=== PATIENT | female | born 1940 | race Caucasian/White ===

== ENCOUNTER 2016-12-06 13:00 | Inpatient (IN) | payer MEDICARE, OTHER ==
[~2016-12-06] VITALS: Ht 157.5 cm; Wt 45.1 kg
--- NOTE | ~2016-12-06 | CON ---
PATIENT'S NAME: EMI LORENZO [facility] AGE: 76 Y [address] ROOM: [facility] [place], [place] [address] [facility] ADMIT DATE: 12/06/2016 Consultation DISCHARGE DATE: FAMILY PHYSICIAN: Ailyn Ramirez APRN ATTENDING PHYSICIAN: Rosendo FROST DATE OF CONSULTATION: 12/14/2016 REFERRING PHYSICIAN: Rick Pollock MD SUBJECTIVE: Emi is seen today. She feels reasonably well with improvement in her shortness of breath. Chest x-ray done yesterday overall looked better. ASSESSMENT: Pneumonia, possible lung mass. PLAN: The patient will be discharged today. We will have Dr. Pollock set up a CT scan in [place] to follow up on her lung mass. She will follow up with me after that. MD GILMA DOMINGUEZ/rafael /[id number] d: 12/14/16 1354 t: 12/28/16 0826, CONSULTATION REPORT
--- NOTE | ~2016-12-06 | OR ---
PATIENT'S NAME: HALIMA LORENZO [facility] AGE: 76 Y [address] ROOM: [place] [address] LOCATION: GPCU ADMIT DATE: 12/06/2016 OR/Procedure Report DISCHARGE DATE: 12/15/2016 FAMILY PHYSICIAN: Ailyn Ramirez APRN ATTENDING PHYSICIAN: Rosendo FROST SURGEON: Giovanni Rodríguez DO REGULATORY ASSISTANT: DATE OF PROCEDURE: 12/14/2016 PREOPERATIVE DIAGNOSIS: Eroding sternal wire, with sternal wire pain. POSTOPERATIVE DIAGNOSIS: Eroding sternal wire, with sternal wire pain. PROCEDURE PERFORMED: Removal of sternal wires x4. BRIEF HISTORY: Mrs. Lorenzo has a history of aortic valve replacement with coronary artery bypass graft approximately 10 years ago by myself. Recently, she was admitted to the hospital with acute respiratory failure secondary to pneumonia. She was on the ventilator. During her time there, she was identified to have erosion of a sternal wire along her incision. She was markedly thinned out over the incision, and her stated this has been like this for several months. The remainder of her wires were also quite prominent and close to the skin. She has been brought to the operative suite today for removal of these. DESCRIPTION OF PROCEDURE: She was placed under MAC anesthetic and sterilely prepped and draped. Lidocaine 1% was used to infiltrate the incision. Four individual incisions were carried out over each sternal wire including the eroded area. The wires were divided and pulled without difficulty. The eroded area was further resected, and each incision was then closed with interrupted 0 Prolene. Further 1% lidocaine was used to infiltrate the area, and sterile dressings applied. She was returned to the recovery area in stable condition. DO TITO ESPINOZA/rafael /[id number] d: 12/17/16 1848 t: 12/20/16 0729, OPERATIVE SUMMARY
--- NOTE | ~2016-12-06 | CON ---
PATIENT'S NAME: EMI LORENZO [facility] AGE: 76 Y [address] ROOM: [place] [address] LOCATION: GICU ADMIT DATE: 12/06/2016 Consultation DISCHARGE DATE: FAMILY PHYSICIAN: Ailyn Ramirez APRN ATTENDING PHYSICIAN: Rosendo DALTON DATE OF CONSULTATION: 12/08/2016 REFERRING PHYSICIAN: Rick Pollock MD REASON FOR CONSULTATION: Pneumonia. SUBJECTIVE: Emi is a 76-year-old female whom I am asked to see today in consultation by Dr. Dalton for further evaluation, treatment, and recommendations regarding pneumonia. She also has a wound related to her prior sternotomy. She underwent mitral valve replacement several months ago-the date of her surgery is listed as September 2009. She has had a sternal wire working its way out recently with an open wound there. She was admitted on 12/06/2016 with cough productive of vnmpig-rg-pelbe sputum, dyspnea, and fever. Her chest x-ray showed bilateral infiltrates and she was suggested as having likely pneumonia. She did require intubation. She has had several prior admissions for pneumonia in the last year, as well. The BAL was carried out, with Staphylococcus aureus growing in culture so far. PAST MEDICAL HISTORY: As above, also COPD, atrial fibrillation, hypertension, and dyslipidemia. ALLERGIES: NONE NOTED. CURRENT MEDICATIONS: See the MAR for complete listing. Her current antibiotics are: 1. Vancomycin. 2. Zosyn. 3. Levofloxacin. FAMILY HISTORY: Significant for cancer and coronary artery disease. SOCIAL HISTORY: No tobacco or alcohol abuse history to my knowledge. She is retired. REVIEW OF SYSTEMS: PATIENT'S NAME: EMI LORENZO [facility] AGE: 76 Y [address] ROOM: [place] [address] LOCATION: [facility] ADMIT DATE: 12/06/2016 Consultation DISCHARGE DATE: FAMILY PHYSICIAN: Ailyn Ramirez APRN ATTENDING PHYSICIAN: Rosendo DALTON A complete review of systems was carried out, was remarkable only as noted. Please refer to the admission history and physical for complete details. OBJECTIVE: VITAL SIGNS: Temperature was 36.6, blood pressure 115/53, and pulse 75. GENERAL: She was on a ventilator, but was awake and responsive. She appeared to be nontoxic. HEENT: Posterior pharynx clear, no adenopathy or thyromegaly. Cranial nerves are intact. NECK: Supple. CHEST: Few rhonchi throughout both lungs. CARDIOVASCULAR: Regular rate and rhythm without S3, S4, or murmur. In the upper sternal incisional area, there was an obvious protruding sternal wire. There is no significant erythema or purulent drainage. ABDOMEN: Soft, nontender, without hepatosplenomegaly or masses. EXTREMITIES: Unremarkable. NEUROLOGIC: Strength globally diminished, no focal findings. PSYCHIATRIC: Behavior and affect appropriate. LABORATORY DATA: Creatinine 0.7, liver function tests normal, white count 22.3 thousand-was 8.4 on admission. Procalcitonin 71.96 on admission. Microbiology-BAL culture 12/06/2016 shows Staphylococcus aureus (methicillin-susceptible). DICTATION ENDS HERE. GAGE LUTZ MD JSS/modl /[id number] CC: Krystle Robbins MD d: 12/08/16 2347 t: 12/23/16 0811, CONSULTATION REPORT
--- NOTE | ~2016-12-06 | CON ---
PATIENT'S NAME: HALIMA LORENZO [facility] AGE: 76 Y [address] ROOM: [id number] [place] [address] LOCATION: [facility] ADMIT DATE: 12/06/2016 Consultation DISCHARGE DATE: FAMILY PHYSICIAN: Ailyn Ramirez APRN ATTENDING PHYSICIAN: Rosendo FROST REFERRING PHYSICIAN: Rick Pollock MD ADDENDUM: RADIOLOGY: Chest x-ray shows bilateral diffuse infiltrates consistent with pneumonia. CT of the thorax on 12/06/2016, shows large areas of dense lung consolidation in the right upper lobe, right lower lobe, and left lower lobe. IMPRESSION: Multifocal pneumonia, presumably Staphylococcus aureus. There is a possibility of aspiration as well given the distribution. She is quite frail and has a poor nutritional status. Additionally, she has a sternal wire protruding, though there is no sign of deep sternal infection at this time. Other diagnoses are as noted above. PLAN: For the time being, we will continue on Zosyn to cover both Staphylococcus aureus and potentially other organisms which have not cultured out yet. I would anticipate a 10-to 14-day course of antibiotics, depending upon her clinical progress. I would note that she has multiple medical conditions and many problems, so her prognosis is uncertain at this time. Continue antibiotics as noted above. I or one of my colleagues will be available to see her in 1 week for re-evaluation. I am available to answer questions by phone at [phone]. MD TAINA URIBE/modl /[id number] d: 12/08/16 233 t: 12/09/16 0751, CONSULTATION REPORT
--- NOTE | ~2016-12-06 | CON ---
PATIENT'S NAME: HALIMA LORENZO [facility] AGE: 76 Y [address] ROOM: [place] [address] LOCATION: GICU ADMIT DATE: 12/06/2016 Consultation DISCHARGE DATE: FAMILY PHYSICIAN: Ailyn Ramirez APRN ATTENDING PHYSICIAN: Rosendo FROST DATE OF CONSULTATION: 12/07/2016 REFERRING PHYSICIAN: Navdeep Christy MD REASON FOR VISIT: Sternal wound. HISTORY OF PRESENT ILLNESS: This is a 76-year-old female patient was admitted to [facility] with pneumonia and severe sepsis. She has a history of type 2 diabetes mellitus, COPD, CAD, atrial fibrillation, and hypertension. She had a coronary artery bypass grafting by Dr. Rodríguez 7 years ago. She is currently intubated and unable to provide a history. No family at bedside. She was able to nod her head and reported she has had this wound for a long time. I do not know if she has had any treatment to this site. She is nodding her head "yes" to the sternal wound pain. No other skin issues noted. PAST MEDICAL HISTORY: CAD, mitral valve regurgitation, status post CABG, atrial fibrillation, COPD, hypertension, hyperlipidemia, and type 2 diabetes mellitus. PAST SURGICAL HISTORY: Coronary artery bypass grafting with mitral valve replacement and abdominal surgery secondary to ulcer. FAMILY HISTORY: Positive for coronary artery disease. SOCIAL HISTORY: Per previous records, the patient lives in [place]. Per previous records, she is a never smoker and does not use alcohol. ALLERGIES: NO KNOWN DRUG ALLERGIES. CURRENT MEDICATIONS: Please refer to the medication administration record. PATIENT'S NAME: HALIMA LORENZO [facility] AGE: 76 Y [address] ROOM: [place] [address] LOCATION: GICU ADMIT DATE: 12/06/2016 Consultation DISCHARGE DATE: FAMILY PHYSICIAN: Ailyn Ramirez APRN ATTENDING PHYSICIAN: Rosendo FROST REVIEW OF SYSTEMS: Unable to fully complete due to patient being intubated. Please see HPI for further details. PHYSICAL EXAMINATION: VITAL SIGNS: Temperature 98.5, pulse 80, respirations 20, & blood pressure 98/48. Height 5 feet 2 inches and weight 55.1 kg. GENERAL: The patient appears pale. Intubated. Does open eyes. Does shake head yes or no. HEENT: Head normocephalic and atraumatic. Anicteric sclerae. Unable to fully visualize oral mucosa. NECK: Supple. CHEST: Please see skin assessment below. EXTREMITIES: Deferred. ABDOMEN: Flat. SKIN: Upper sternal wound measures 0.8 cm width x 0.5 cm length x 0.5 cm depth. Area probes to bone. Sternal wire present. Wound from what I can tell, appears pink. Periwound is very erythemic and slightly elevated. No odor. Moderate bloody exudate noted with probing. LABORATORY: Procalcitonin 1 to 1.08. CPK 309, CK-MB 2.4, and troponin I is 0.278. Magnesium 1.6. PT 24.6, INR at 2.32. Hemoglobin 9.3, hematocrit 29.1, lactate 2.7. Sodium 147, potassium 4.2, chloride 119, bicarb 13, BUN 26, creatinine 1.0, and glucose 97. ASSESSMENT/PLAN: Again, this is a 76-year-old female patient who was admitted to [facility] with pneumonia and severe sepsis. Wound Care consult to evaluate and assess sternal wound. 1. Sternal wound, status post CABG with mitral valve replacement about 7 years ago. Unsure of the onset. The patient appears very thin and probably lost significant weight, and due to the severe nature of her sepsis, this wound seems to have a multifactor etiology. Wound does probe to bone. I recommend consulting Dr. Rodríguez for further management and possible surgical intervention. For now, I instructed nursing to cover site with an Allevyn foam dressing changing Tuesdays and Fridays and p.r.n. saturation. 2. Severe sepsis. The patient on antibiotic therapy. Hospice managing. 3. Acute respiratory failure with hypoxia. The patient currently intubated. I would like to thank Dr. Christy for this consult. PATIENT'S NAME: HALIMA LORENZO [facility] AGE: 76 Y [address] ROOM: [place] [address] LOCATION: [facility] ADMIT DATE: 12/06/2016 Consultation DISCHARGE DATE: FAMILY PHYSICIAN: Ailyn Ramirez APRN ATTENDING PHYSICIAN: Rosendo FROST HANG HERRERA APRN FOR MD TREE DAVIS/modl /[id number] d: 12/08/16 1326 t: 12/23/16 1054, CONSULTATION REPORT
--- NOTE | ~2016-12-06 | DS ---
PATIENT'S NAME: HALIMA LORENZO [facility] AGE: 76 Y [address] ROOM: [facility] [place], [place] [address] LOCATION: GPCU ADMIT DATE: 12/06/2016 Discharge Summary DISCHARGE DATE: 12/15/2016 FAMILY PHYSICIAN: Ailyn Ramirez APRN ATTENDING PHYSICIAN: Krystle Robbins PRIMARY DIAGNOSES: 1. Septic shock. 2. Other acute diagnoses include:. a. Bilateral methicillin-sensitive staph aureus pneumonia. b. Acute hypoxic respiratory failure. c. Acute encephalopathy. d. Elevated troponin. e. Paroxysmal atrial fibrillation. f. Sternal wire exposure. g. Physical deconditioning. h. Severe protein-calorie malnutrition. i. Acute hypernatremia. j. Electrolyte imbalance. 3. Chronic conditions include:. a. Paroxysmal atrial fibrillation. b. Essential hypertension. PRINCIPAL PROCEDURES: Done for the patient include no procedure was indicated. LABS ON ADMISSION: ABG on admission; pH was 7.47, pCO2 was 29, pO2 was 62, and on vent last ABG, which was obtained was pH of 7.48, pO2 of 68, pCO2 of 31, bicarb 23.1, FiO2 of 30%. WBC on admission was 8.4, highest level obtained was 34.5, prior to discharge was 22.8; H and H on admission were 10.0 and 31.9, prior to discharge was 9.8 and 31.5, H and H were stable throughout the hospital stay; platelet count was 268 on admission, prior to discharge was 531. Sodium on admission was 143, highest level obtained was 147; potassium on admission was 3.4, was repleted multiple times, prior to discharge was 5.4; bicarb was stable throughout the hospital stay, on admission was 23, lowest level obtained was 13, prior to discharge was 28. Creatinine was 1.0 on admission, prior to discharge was 0.9. Phosphorus on admission was 2.6, lowest level obtained was 0.5, prior to discharge was 2.8. Magnesium on admission was 1.1, was repleted multiple times, prior to discharge was 1.8. INR on admission was 2.2, prior to discharge was 1.14. UA on admission: Leukocytes 25, nitrite negative, wbc's 2-5, bacteria rare. Procalcitonin on admission was 71.96, highest level obtained was 121.08. MICROBIOLOGY DATA: Blood culture x2 sets, no growth. Urine culture was no growth after 2 days. Bronchoalveolar lavage was methicillin-sensitive staph PATIENT'S NAME: HALIMA OLRENZO [facility] AGE: 76 Y [address] ROOM: [place] [address] LOCATION: GPCU ADMIT DATE: 12/06/2016 Discharge Summary DISCHARGE DATE: 12/15/2016 FAMILY PHYSICIAN: Ailyn Ramirez APRN ATTENDING PHYSICIAN: Krystle Robbins. Stool analysis, no Salmonella. Negative for ova and parasite. Stool for C. difficile was negative. Stool for occult blood was negative. RADIOLOGY DATA: Chest x-ray reported as left pleural effusion and left basilar consolidation or atelectasis, cannot exclude a right lung mass. Repeat chest x-ray after that intubation unchanged, mass like opacity in the right mid lung, more apparent on this film with blunting of the costophrenic angle on the right, suggestive of effusion. CT of the head, no acute hemorrhage or midline shift. Generalized atrophic changes and white matter small vessel ischemic changes. CT chest reported as endotracheal tube and orogastric tube in place, past cardiac surgery, large areas of dense lung consolidation in the right upper lobe, right lower lobe, and left lower lobe. Serial chest x-ray done. HOSPITAL COURSE: For history of present illness, please take a look at the H and P, which was done by Dr. Dalton. The patient was admitted to ICU with acute hypoxic respiratory failure and was subsequently intubated in PCU and was transferred to the ICU. Cause of the acute hypoxic respiratory failure was thought to be secondary to severe bilateral lobe pneumonia. She was started empirically on broad-spectrum antibiotics of vancomycin, Levaquin, and Zosyn. The patient subsequently also did develop transient shock, which was thought to be secondary to septic shock; however, she was quickly weaned off the pressors within 24 hours. She did also get a Cardiology consult for the elevated troponins; however, this was thought to be secondary to demand ischemia. The patient remained intubated for at least 3 days, after which she was successfully extubated on December 10, 2016, to 6 L of nasal cannula. She did also get an ID consult, and the sputum culture was positive for methicillin- sensitive Staph, and so ID deescalated the antibiotics to Zosyn, which she continued on up until discharge. However, during the hospital stay, her white cell count continued to trend up, and at this point vancomycin was added for approximately 2 days, after which it was discontinued as this did not have any change in the elevation of the white blood cell count. By December 11, 2016, the patient was transferred out of the ICU to PCU where she continued to make improvement in her clinical condition. She started with physical therapy, which she participated well with, and slowly, her oxygen demand progressively reduced, and she was successfully weaned off oxygen to room air on the day of discharge. During her hospital stay, she did also develop some electrolyte imbalance of hypophosphatemia, hypomagnesemia, and hypokalemia. All of which were repleted multiple times. During her ICU stay, it was observed that her sternotomy wire was exposed, and this was deferred till December 14, 2016, during which time it was done removed by Dr. Rodríguez. The procedure was well tolerated by the patient without any intraoperative or postoperative complications. Given her severe physical deconditioning, plan was for the PATIENT'S NAME: HALIMA LORENZO [facility] AGE: 76 Y [address] ROOM: [address] [address] LOCATION: GPCU ADMIT DATE: 12/06/2016 Discharge Summary DISCHARGE DATE: 12/15/2016 FAMILY PHYSICIAN: Ailyn Ramirez APRN ATTENDING PHYSICIAN: Krystle Robbins patient to be discharged to swing bed at [facility] for more strengthening. However, on the day of discharge, she was able to walk with physical therapy without support, without oxygen, and vital signs remained stable, and she was discharged to the swing bed. On the day of discharge, I did also talk with Dr. Arriaga, the ID doctor, regarding further management of duration of antibiotics, and he recommended for the patient to be on Augmentin for an additional 10 more days. DISCHARGE INSTRUCTIONS: Include the patient is to continue on Lovenox to bridge with Coumadin, and Lovenox is to be stopped once INR is greater than or equal to 1.9. MEDICATIONS ON DISCHARGE: 1. Multaq 400 mg p.o. twice daily. 2. Coumadin 4.5 mg p.o. twice daily 2 days a week. 3. Aspirin 81 mg p.o. daily. 4. Lovenox 60 mg subcu daily. 5. Protonix 40 mg p.o. daily. 6. Crestor 10 mg p.o. q.h.s. 7. Coumadin 3 mg p.o. 5 days a week. 8. Tylenol 325 to 650 mg p.o. q.6 hours p.r.n. 9. Florastor 250 mg p.o. twice daily. 10. Dulcolax 10 mg rectally every day p.r.n. 11. Milk of magnesia 30 mL p.o. daily p.r.n. 12. Reglan 10 mg p.o. daily. 13. DuoNeb 1 vial 3 times daily p.r.n. 14. Symbicort 160/4.5 mcg inhaler 1 puff daily p.r.n. 15. Augmentin 875/125 mg b.i.d. p.o. for an additional 10 more days. 16. Prednisone taper, prednisone 40 mg p.o. daily for 3 days, then prednisone 30 mg p.o. for 3 days, then 20 mg p.o. daily for 3 days, then 10 mg p.o. daily for 3 days, and prednisone 5 mg p.o. daily for 3 days, then stop. Discharge time spent on this patient is approximately 40 minutes, which included coordinating discharge care with care management and also discussing with the accepting medical team at the swing bed. MD PINKY MELO/rafael /[id number] d: 12/16/16 0121 t: 12/19/16 1619, DISCHARGE SUMMARY
--- NOTE | ~2016-12-06 | CON ---
PATIENT'S NAME: HALIMA LORENZO [facility] AGE: 76 Y [address] ROOM: [place] [address] LOCATION: [facility] ADMIT DATE: 12/06/2016 Consultation DISCHARGE DATE: FAMILY PHYSICIAN: Ailyn Ramirez APRN ATTENDING PHYSICIAN: Rosendo FROST REFERRING PHYSICIAN: Rick Pollock MD REFERRING PHYSICIAN: Dr. Hampton. REASON FOR CONSULT: Elevated cardiac enzymes. HISTORY OF PRESENT ILLNESS: This is a 76-year-old female with a history of mitral valve regurgitation, post bioprosthetic mitral valve as well as coronary artery disease post single- vessel bypass. She also has history of paroxysmal atrial fibrillation and hypertension as well as diabetes mellitus and COPD. She presented to the [facility] complaining of being very weak and coughing. She was so weak she could not even get out of bed at that morning. She has been complaining of a low-grade fever as well as a cough and shortness of breath. Her appetite has been very poor and she is "completely worn out." Family was quite confused because she has been a little more confused lately. She has not really complained of chest pain. She was a little orthopneic. She denies palpitations, lightheadedness, or dizziness. No presyncope or syncope. At the time of consultation, she is extremely short of breath with increased work of breathing, sitting upright with her mouth open gasping for air. HISTORY OF PRESENT ILLNESS: Most of the information was gathered from her family. As of note, patient had not followed up with Dr. Pollock since 2013. PAST MEDICAL HISTORY: 1. Mitral valve regurgitation, post mitral valve replacement, #29 bioprosthetic valve 09/2009. 2. Coronary artery disease post open heart surgery with reverse saphenous vein graft to the PDA 09/2009. 3. Essential hypertension. 4. Dyslipidemia. 5. Long-term anticoagulation - warfarin. 6. Paroxysmal atrial fibrillation. 7. Diabetes mellitus type 2. 8. High-risk medications - Multaq. 9. COPD. 10. History of pneumonia. PATIENT'S NAME: HALIMA LORENZO [facility] AGE: 76 Y [address] ROOM: [place] [address] LOCATION: [facility] ADMIT DATE: 12/06/2016 Consultation DISCHARGE DATE: FAMILY PHYSICIAN: Ailyn Ramirez APRN ATTENDING PHYSICIAN: Rosendo FROST 11. Aortic regurgitation. 12. Macular degeneration. 13. Gastroesophageal reflux. PAST SURGICAL HISTORY: 1. T and A. 2. Appendectomy. 3. 10/02/1997, right femoral neck fracture, post pinning. 4. Abdominal hysterectomy in her 30s. 5. 04/05/2000, left femoral neck fracture, post closed reduction with percutaneous screw placement 04/05/2000. 6. Left heart catheterization, 09/15/2009 of the left and right heart catheterization, 09/15/2009 at [facility]. 7. 10/07/2009 mitral valve replacement #29 bioprosthetic valve with one- vessel CABG RSV to the PDA. 8. Thyroidectomy and parathyroidectomy. 9. Bowel resection. ALLERGIES: NONE TO MEDICATION. HOME MEDICATIONS: 1. Acetaminophen 325 mg every 6 hours. 2. She is on amoxicillin 500 mg 2 g p.o. one time prior to dental procedure. 3. Symbicort 160/4.5, one puff every day. 4. Multaq 400 mg b.i.d. 5. Ipratropium/albuterol sulfate 0.5/3 inhalation t.i.d. 6. Metoclopramide 5 mg, she takes two tablets daily. 7. Pantoprazole 40 mg p.o. every day. 8. Rosuvastatin or Crestor 10 mg every h.s. 9. Micardis or telmisartan 20 mg daily. 10. Warfarin 4.5 mg 2 days a week and 3 mg 5 days a week. FAMILY HISTORY: Father had a myocardial infarction at the age 52 and . Mother had bone cancer as well as colon cancer. It is seemed that she had a sister with some sort of heart problem as well diabetes mellitus, REVIEW OF SYSTEMS: Are per HPI. She is very short of breath and difficult to discuss at this time. PHYSICAL EXAMINATION: VITAL SIGNS: She is awake, alert, answers questions appropriately. She is in acute respiratory distress. PATIENT'S NAME: HALIMA LORENZO [facility] AGE: 76 Y [address] ROOM: [place] [address] LOCATION: GICU ADMIT DATE: 12/06/2016 Consultation DISCHARGE DATE: FAMILY PHYSICIAN: Ailyn Ramirez APRN ATTENDING PHYSICIAN: Rosendo FROST HEENT: Pupils were equal. LUNGS: Sounds were coarse with rales or rhonchi throughout. CV: Regular and sinus rhythm with frequent PVCs. ABDOMEN: Soft. Bowel sounds are present. EXTREMITIES: Show no peripheral edema. VITAL SIGNS: Her height is 5 feet 2 inches, weight is 52.5 kg, initial blood pressure 146/67 with a heart rate of 107 to 140, temp max is 100.1. LABS: From [facility], WBC is 31, hemoglobin 11, platelets are 271. UA shows moderate blood. Sodium 138, potassium 3.4, BUN 25, creatinine 0.95. Lactic acid 2.4, troponin 0.13, INR 2.08, second troponin was 0.16. ASSESSMENT: 1. Elevated cardiac enzymes, currently were not concerned with those enzymes, but at this time, we will treat her acute respiratory distress and pneumonia. 2. Premature ventricular contractions. We are going to replace her potassium as it is a little bit low at this time. 3. Pneumonia. She will follow up with the hospitalist. 4. Diabetes mellitus. She will continue diet control. We will continue to monitor her closely. 5. Paroxysmal atrial fibrillation. She remains in rhythm. She will continue the Multaq and warfarin therapy. The assessment and plan, history of present illness, and physical exam are per Dr. Chacho Pollock. We would like to thank Dr. Hampton for allowing us to participate in the patient's care. Further recommendations will be forthcoming. AMY MILLER APRN FOR MD JIMMIE [place]/rafael /[id number] d: 12/07/16 1525 t: 12/23/16 1320, CONSULTATION REPORT
--- NOTE | ~2016-12-06 | HP ---
PATIENT'S NAME: HALIMA LORENZO [facility] AGE: 76 Y [address] ROOM: [place] [address] LOCATION: GICU ADMIT DATE: 12/06/2016 History & Physical DISCHARGE DATE: FAMILY PHYSICIAN: PHYSICIAN, UNKNOWN ATTENDING PHYSICIAN: Rosendo FROST DATE OF SERVICE: CHIEF COMPLAINT: Elevated troponin. HISTORY OF PRESENT ILLNESS: The patient is a 76-year-old female with past medical history of COPD; persistent atrial fibrillation; mitral valve regurg, status post bioprosthetic; CAD, status post CABG; and hypertension, who presents here from outside hospital with elevated troponin. The patient reports that this morning she was having productive cough with yellow to brown sputum, shortness of breath, fatigue, and fever. The patient was taken to the emergency department and was found to have elevated troponin of 0.1 and was brought here for further cardiac workup. According to the patient and , the patient started having generalized fatigue, productive cough, and fever yesterday evening. However, the patient did not want to go to the emergency department yesterday evening. However, the patient's symptoms did not improve and was taken to the emergency department. In the emergency department, the patient was found to have bilateral pneumonia on chest x-ray with elevated temperature of 103.4. The patient also reports one episode of chest pain yesterday, which she states was dull and aching, located at the left lower chest and associated with cough. The patient currently denies chest pain. Troponin done in the outside hospital shows elevated at 0.1, and was sent here after discussion with Dr. Pollock for a possible cardiac workup. Of note, the patient has been admitted several times in the past for pneumonia. She has been admitted 3 times in this year alone, last admission was 2 months ago. MEDICAL HISTORY: 1. COPD. 2. AFib. 3. Mitral valve regurgitation, status post bioprosthetic. 4. CAD, status post CABG. 5. Hypertension. 6. Hyperlipidemia. SURGICAL HISTORY: 1. CABG. PATIENT'S NAME: HALIMA LORENZO [facility] AGE: 76 Y [address] ROOM: [place] [address] LOCATION: GICU ADMIT DATE: 12/06/2016 History & Physical DISCHARGE DATE: FAMILY PHYSICIAN: PHYSICIAN, UNKNOWN ATTENDING PHYSICIAN: Rosendo FROST 2. Mitral valve placement. 3. Abdominal surgery apparently secondary to ulcer. FAMILY HISTORY: Mother of bone cancer and father had a history of coronary disease. SOCIAL HISTORY: The patient is a retired grocery store associate. MEDICATIONS: See MAR. REVIEW OF SYSTEMS: All systems have been reviewed and are negative except for what mentioned in the HPI. PHYSICAL EXAMINATION: VITAL SIGNS: Temperature 103.4 at outside hospital, blood pressure 146/67, respiratory rate of 22, O2 sat of 91 on 7 L, and a heart rate of 120. GENERAL APPEARANCE: The patient is in mild respiratory distress, noted to be tachypneic. HEAD: Normocephalic, atraumatic. NOSE: No nasal discharge. EARS: No ears discharge. CHEST: Mild expiratory wheezing bilaterally. No rhonchi or rales appreciated. HEART: Tachycardic. Regular rhythm. No murmurs, rubs, or gallops heard. ABDOMEN: Soft, nontender, and nondistended. Bowel sounds present. JOINT: Range of motion intact. No obvious effusion noted. SKIN: Warm to touch. PAINT STOCK CLERK: Alert and oriented x3. Motor and sensory grossly intact. LABORATORY DATA: Labs drawn from outside hospital: Sodium of 138, potassium of 3.4, chloride of 102, CO2 of 25, BUN of 25, and creatinine of 0.95. Blood glucose of 162. White blood cell count of 13.1, hemoglobin 11, and platelet of 271. Lactic acid of 2. EKG here shows sinus tachycardia with PVCs. ASSESSMENT AND PLAN: 1. Severe sepsis. The patient is a 76-year-old female with past medical history of chronic obstructive pulmonary disease with recent history of multiple pneumonia admissions, who presents here with severe sepsis most likely secondary to pneumonia. The patient had leukocytosis of 13.1 and a temperature of 103 with elevated lactate of 2, and also, the patient was noted to be somewhat confused on admission. Chest x-ray done at PATIENT'S NAME: MAURAHALIMA [facility] AGE: 76 Y [address] ROOM: [place] [address] LOCATION: [facility] ADMIT DATE: 12/06/2016 History & Physical DISCHARGE DATE: FAMILY PHYSICIAN: PHYSICIAN, UNKNOWN ATTENDING PHYSICIAN: Rosendo FROST outside hospital shows bilateral pneumonia. Since the patient has been admitted multiple times in the past few year and last admission was 2 months ago and has had 3 admissions only in this year, we will treat the patient as HCAP. We will start the patient on Vancomycin and Zosyn and also we would add Levaquin for atypical coverage. We will acquire a repeat chest x-ray here. Blood culture is pending. Also, the patient's blood pressure was found to be labile at outside hospital with systolic blood pressure up to 85 and was given IV fluids. We will give bolus of 30 mL/kg now and start 100 mL an hour. We will acquire lactate. We will trend lactate level if it is abnormal. Blood culture and sputum culture are pending. 2. Acute respiratory failure with hypoxia. Etiology is secondary to HCAP and exacerbation of chronic obstructive pulmonary disease. We will treat HCAP as stated as above. We will start the patient on DuoNeb and prednisone 40 mg b.i.d. We will acquire ABG and follow the patient clinically. 3. HCAP. See problem #1. 4. Elevated troponin of 0.1. Etiology most likely secondary to demand. However, Cardiology is on board, Dr. Pollock is on board. We will trend cardiac enzyme level. We will treat underlying etiology. Continue aspirin, statin, and beta-chavez. 5. Paroxysmal atrial fibrillation. The patient is currently in sinus tachycardia. We will continue home medication of beta chavez and Multaq. INR checked today at outside hospital was 2. Pharmacy to dose Coumadin. 6. History of coronary artery disease, status post CABG, on aspirin and statin. 7. Chronic obstructive pulmonary disease. See problem #2, stable. 8. Multiple premature ventricular contractions. Cardiology is on board. We will correct potassium and magnesium to keep magnesium above 2 and potassium above 4. Continue Multaq, and we will add beta-chavez. 9. Hypokalemia, 3.4. We will give potassium. We will follow with renal function panel daily. I have personally reviewed the patient's medical record including but not limited to blood work. Total time spent with the patient is greater than 70 minutes, more than 50% of the time is spent in direct patient care and patient consultation. Case was reviewed with the patient and family member and nursing staff. All questions were answered to the patient's satisfaction. We will admit the patient for severe sepsis secondary to HCAP. SANTOSH SAWYER MD PATIENT'S NAME: HALIMA LORENZO [facility] AGE: 76 Y [address] ROOM: [place] [address] LOCATION: [facility] ADMIT DATE: 12/06/2016 History & Physical DISCHARGE DATE: FAMILY PHYSICIAN: PHYSICIAN, UNKNOWN ATTENDING PHYSICIAN: Rosendo FROST/rafael /[id number] D: [id number] T: [id number] HISTORY & PHYSICAL
--- NOTE | ~2016-12-06 | CON ---
PATIENT'S NAME: HALIMA LORENZO [facility] AGE: 76 Y [address] ROOM: [place] [address] LOCATION: [facility] ADMIT DATE: 12/06/2016 Consultation DISCHARGE DATE: FAMILY PHYSICIAN: PHYSICIAN, UNKNOWN ATTENDING PHYSICIAN: Rosendo FROST DATE OF CONSULTATION: 12/07/2016 REFERRING PHYSICIAN: Rick Pollock MD REFERRING: Hospitalist Service. REASON FOR REFERRAL: Respiratory failure. HISTORY OF PRESENT ILLNESS: The patient is a 76-year-old with a history of chronic obstructive pulmonary disease. She presented initially to her primary facility with shortness of breath, cough, and fever. Chest x-ray demonstrated bilateral infiltrates. The patient was ultimately transferred here and ultimately intubated due to refractory hypoxemia. PAST MEDICAL HISTORY: Unable to obtain. Please refer to the admission history and physical exam. FAMILY HISTORY, SOCIAL HISTORY, AND REVIEW OF SYSTEMS: Also unobtainable. PHYSICAL EXAMINATION: GENERAL: Intubated, sedated on mechanical ventilation. ENT: Endotracheal tube in place. NECK. Normal. CHEST: Hyperinflated. LUNGS: Rhonchi. Diminished breath sounds. HEART: Distant. Regular. ABDOMEN: Nontender. EXTREMITIES: No clubbing or edema. ASSESSMENT: Bilateral pneumonia with acute hypoxemic respiratory failure and septic shock. PLAN: Continue current antibiotic therapy. It is too early today to wean the ventilator, may be tomorrow. Continue other support. PATIENT'S NAME: HALIMA LORENZO [facility] AGE: 76 Y [address] ROOM: [place] [address] LOCATION: [facility] ADMIT DATE: 12/06/2016 Consultation DISCHARGE DATE: FAMILY PHYSICIAN: PHYSICIAN, UNKNOWN ATTENDING PHYSICIAN: Rosendo FROST MD GILMA DOMINGUEZ/rafael /[id number] d: 12/07/16 0958 t: 12/28/16 0823, CONSULTATION REPORT
--- NOTE | ~2016-12-06 | HP ---
PATIENT'S NAME: HALIMA LORENZO [facility] AGE: 76 Y [address] ROOM: [place] [address] LOCATION: [facility] ADMIT DATE: 12/06/2016 History & Physical DISCHARGE DATE: FAMILY PHYSICIAN: PHYSICIAN, UNKNOWN ATTENDING PHYSICIAN: Rosendo FROST DATE OF SERVICE: ADDENDUM: ASSESSMENT AND PLAN: 1. Problem #9. Severe protein and calorie malnutrition. We will consult dietitian. Cardiac diet. 2. Problem #10. History of mitral valve regurgitation, status post bioprosthetic. We will continue aspirin. The patient currently on Coumadin. MD SCARLET FLORES/rafael /[id number] D: [id number] T: [id number] HISTORY & PHYSICAL
--- NOTE | ~2016-12-06 | CON ---
PATIENT'S NAME: HALIMA LORENZO [facility] AGE: 76 Y [address] ROOM: [place] [address] LOCATION: GPCU ADMIT DATE: 12/06/2016 Consultation DISCHARGE DATE: 12/15/2016 FAMILY PHYSICIAN: Ailyn Ramirez APRN ATTENDING PHYSICIAN: Rosendo FROST DATE OF CONSULTATION: 12/09/2016 REFERRING PHYSICIAN: Rick Pollock MD PALLIATIVE MEDICINE CONSULT LOCATION: room [facility]. REFERRING PROVIDER: Dr. Navdeep Christy MD. CHIEF COMPLAINT: Palliative care referral for support and chronic disease education. HISTORY OF PRESENT ILLNESS: The patient is a 76-year-old female who was admitted with bilateral pneumonia and sepsis. Family reports the patient has had multiple hospitalizations in the last few years for pneumonia as well as 3 hospitalizations in the last 6 months. She also has a history of COPD, coronary artery disease, atrial fibrillation, and diabetes mellitus type 2. She does not wear O2 at home, and family reports that she is quite active at home. Family reports that the patient had a productive cough and increasing weakness x2 days prior to admission. At the time of my consultation, the patient is intubated and off sedation. She is alert and able to communicate via writing. She reports generalized discomfort, but no specific pain. Denies shortness of breath. Denies nausea or vomiting. Was trialed in CPAP mode this morning and was only able to tolerate for 10 minutes. PAST SURGICAL HISTORY: Previous operations: 1. Tonsils and adenoids. 2. Appendectomy. 3. Parathyroid and thyroidectomy. 4. Sinus surgery. 5. Abdominal hysterectomy. 6. Bowel resection. 7. Gastrectomy. 8. Bilateral hip pinning. 9. Cysto for kidney stone. PATIENT'S NAME: HALIMA LORENZO [facility] AGE: 76 Y [address] ROOM: [place] [address] LOCATION: GPCU ADMIT DATE: 12/06/2016 Consultation DISCHARGE DATE: 12/15/2016 FAMILY PHYSICIAN: Ailyn Ramirez APRN ATTENDING PHYSICIAN: Rosendo FROST 10. Breast biopsy. 11. Cataracts. 12. Rerouting of the stomach. 13. Aortic valve replacement. 14. One artery bypass. PAST MEDICAL HISTORY: 1. COPD. 2. Atrial fibrillation. 3. Coronary artery disease. 4. Hypertension. 5. Hyperlipidemia. 6. Recurrent hospitalizations for pneumonia over the last couple years. 7. History of stomach ulcer. 8. Diabetes mellitus, diet controlled. MEDICATIONS: Please see current MAR. ALLERGIES: NO KNOWN ALLERGIES. SOCIAL HISTORY: The patient is and lives with her in [place], [place]. No history of tobacco or alcohol use. FAMILY HISTORY: Her father of a heart attack at the age of 52. Mother had colon cancer. She has a sister with diabetes and heart disease. REVIEW OF SYSTEMS: General: Family reports the patient lost a lot of weight with her CABG approximately 7 years ago and has never gained it back. They report that she does not have much of an appetite, but has not had any significant changes in her weight recently. No fever, chills, or night sweats. Denies fatigue. HEENT: No changes in her vision or hearing. No headache. No sinus congestion. RESPIRATORY: Reports feeling short of breath on the ventilator and does have a chronic cough. CARDIOVASCULAR: Denies any chest pain currently. Denies orthopnea. No peripheral edema. GASTROINTESTINAL: No nausea, vomiting, diarrhea, or constipation. No blood in her stools. No difficulties chewing or swallowing. GENITOURINARY: No dysuria, urinary frequency, or urgency. MUSCULOSKELETAL: Complains of generalized discomfort. No specific joint or PATIENT'S NAME: HALIMA LORENZO [facility] AGE: 76 Y [address] ROOM: [place] [address] LOCATION: [facility] ADMIT DATE: 12/06/2016 Consultation DISCHARGE DATE: 12/15/2016 FAMILY PHYSICIAN: Ailyn Ramirez APRN ATTENDING PHYSICIAN: Rosendo FROST back complaints. Family reports that she ambulates independently at home, has not had any recent falls. NEUROLOGICAL: Denies numbness or tingling. No seizures. INTEGUMENTARY: No rashes. Does have an open area over a sternal wound where her sternal wires are. HEMATOLOGICAL: No new bruising or bleeding. PSYCHIATRIC: Denies feeling overtly depressed or anxious. PHYSICAL EXAMINATION: VITAL SIGNS: Blood pressure 132/65, heart rate 67, temperature 98.4, respirations 20, and O2 saturation 98% on 40% FiO2 on the ventilator. GENERAL: Reveals an alert and oriented frail-appearing elderly white female, who is in no acute distress on the ventilator in the intensive care unit. HEENT: Normocephalic, atraumatic. Pupils are equal and reactive to light. Sclerae anicteric. Conjunctivae pink. Tongue and mucous membranes are moist and pink. Dentition is adequate. CARDIOVASCULAR: Heart tones are irregular. RESPIRATORY: Respirations are regular and nonlabored. Lung sounds are coarse bilaterally. GASTROINTESTINAL: Abdomen is soft, nontender. Bowel sounds are present. MUSCULOSKELETAL: No significant joint deformities. Peripheral pulses are 1+ bilaterally. There is no clubbing, cyanosis, or edema. SKIN: Warm and dry. Does have a dressing to the upper end of her sternum. No drainage. NEUROLOGICAL: Grossly intact. Mental status is unremarkable. IMPRESSION AND PLAN: 1. Respiratory failure. 2. Frailty. 3. Code status. The patient is a full code. She does not have an advance directive on her chart, but family does state that she has one somewhere at home. She does have a form from [facility] on which she marked that she would want everything done as far as CPR, ventilation, hemodialysis, antibiotics, etc. Introduced the role of palliative care to the patient and her family for additional support in the intensive care unit and during her hospital stay. Provided education to the family on COPD disease trajectory with recurrent hospitalizations. Discussed with them also her degree of frailty. Family reports that they have good support, answered their questions in regard to chronic illnesses. They denied any concerns or needs at this time. At this point, goal is for the patient to be able to return home, but most likely will need a short swing bed stay first. Total visit was 40 minutes. Half of this time was spent providing education and counseling on chronic disease management. PATIENT'S NAME: HALIMA LORENZO [facility] AGE: 76 Y [address] ROOM: [id number] [place], [place] [address] LOCATION: GPCU ADMIT DATE: 12/06/2016 Consultation DISCHARGE DATE: 12/15/2016 FAMILY PHYSICIAN: Ailyn Ramirez APRN ATTENDING PHYSICIAN: Rosendo FROST Thank you for allowing me to assist with the patient and family. TRAE TUCKER NP FOR JOVANNI PINEDA MD DLS/modl /[id number] CC: Navdeep Christy MD d: 12/16/162125 t: 12/21/16 1400, CONSULTATION REPORT
[2016-12-06] MEDS ORDERED: COUMADIN ** IA3 MG PO ×2 (15:06→15:13)
[2016-12-06] MEDS ORDERED: METOCLOPRAMIDE H5 MG PO (15:07)
[2016-12-06] MEDS ORDERED: TYLENOL325 MG PO (15:08)
[2016-12-06] MEDS ORDERED: PANTOPRAZOLE SO40 MG PO (15:08)
[2016-12-06] MEDS ORDERED: MULTAQ400 MG PO (15:08)
[2016-12-06] MEDS ORDERED: CRESTOR10 MG PO (15:09)
[2016-12-06] MEDS ORDERED: DUONEB INH (15:09)
[2016-12-06] MEDS ORDERED: MICARDIS20 MG PO (15:10)
[2016-12-06] MEDS ORDERED: SYMBICORT 16010.2 GM INH (15:10)
[2016-12-06] MEDS ORDERED: AMOXICILLIN500 MG PO (15:11)
--- NOTE | 2016-12-06 15:48 | NUR ---
Pt is 76 y/o female admit for pneumonia/chest pain for hospitalist. Cardiology to consult (Dr.DJ Pollock). Pt alert and oriented x3. On 6L O2 per NC. Came from [facility] via ambulance. Resides at home with her . No allergies. Has had low grade fever,cough,SOB,and increased weakness since yesterday and she states she's had chest pain off and on for about 2 months. Hx CAD,aortic valve replaced w 1 vessel bypassed,htn,hyperlipids,MVP,afib, chronic sinus problems,COPD,several bouts with pneumonia over past 2 yrs, chronic cough,neb tx's,SOB,ulcer,bowel obstruct,gerd,DM type 2 diet controlled, partial thyroidectomy/parathyroidectomy. Family at bedside.
[2016-12-06 18:03] LABS: BICARBONATE 21.1 mmol/L (18.0-23.0); PCO2 29 mmHg (35-45); PO2 62 mmHg (80-90)
[2016-12-06 18:39] LABS: BICARBONATE 21.9 mmol/L (18.0-23.0); PCO2 37 mmHg (35-45); PO2 64 mmHg (80-90)
[2016-12-06 18:41] LABS: HEMATOCRIT 31.9 % (33.0-46.0); MCH 29.6 pg (27.0-34.0); MCHC 31.3 gm/dL (32.0-36.5); MCV 94.4 fl (83.0-98.0); MPV 10.2 fl (9.4-12.4); PLATELET COUNT 268 K/uL (150-450); RBC 3.38 M/uL (3.50-5.50); RDW-CV 15.9 % (11.9-14.6); WBC 8.4 K/uL (4.0-11.0)
[2016-12-06 18:48] LABS: INR - (THERAPEUTIC) 2.22 (0.92-1.07); PROTIME 23.5 SECONDS (9.8-11.4); PTT 39 SECONDS (25-32)
[2016-12-06 19:01] LABS: ALBUMIN 2.6 gm/dL (3.5-5.0); ANION GAP 14.7 (10.0-19.0); POTASSIUM 3.7 mMol/L (3.7-5.1); TOTAL BILIRUBIN 0.6 mg/dL (0.0-1.5); TOTAL PROTEIN 5.8 g/dL (6.0-8.4)
[2016-12-06 19:07] LABS: CALCIUM 6.9 mg/dL (8.5-10.5)
[2016-12-06 19:25] LABS: ABSOLUTE NEUTROPHIL CT (ANC) 7.1 K/uL (1.8-7.8); BANDED NEUTROPHIL # 6.2 K/uL (0.0-0.1); BANDED NEUTROPHILS % 74 %; LYMPHOCYTE # 0.8 K/uL (0.8-4.0); LYMPHOCYTE % 10 %; MONOCYTE # 0.3 K/uL (0.0-1.0); SEGMENTED NEUTROPHIL # 0.9 K/uL (1.8-7.8); SEGMENTED NEUTROPHIL % 11 %
--- NOTE | 2016-12-06 20:32 | NUR ---
Patient was a direct admit to PCU at 1455. Was alert & oriented x3 upon arrival. HR 100-110's. Temp 98.0. RR 22-24. BP's 130-140's/ 60's. Had frequent harsh cough, non-productive. Pupils pinpoint, reactive to light. C/O back pain from cough and transport from [facility]. Had superficial wound to sternum, covered by gauze, 3 cm in diameter. Andrade catheter present. Patient started having 25-35 PVC's per minute around 1645, MD notified. Lung sounds slightly coarse throughout, on 6L NC, was switched to Bi-pap at 1830. IV fluids NS at 100 ml/hr. Student nurse found patient attempting to get out of bed, with bi-pap unhooked, HR 150's-Sats 60's- SBP 180-200's. Rapid response was called, patient was transferred to ICU.
[2016-12-06 20:45] LABS: BICARBONATE 18.8 mmol/L (18.0-23.0); PCO2 29 mmHg (35-45); PO2 132 mmHg (80-90)
[2016-12-06 21:38] LABS: BILIRUBIN URINE NEGATIVE (NEGATIVE); BLOOD URINE 250 /UL (NEGATIVE); COLOR URINE AMBER (YELLOW); GLUCOSE URINE NEGATIVE (NEGATIVE); KETONE URINE 5 mg/dL (NEGATIVE); LEUKOCYTES URINE 25 /UL (NEGATIVE); NITRITE URINE NEGATIVE (NEGATIVE); PROTEIN URINE 100 mg/dL (NEGATIVE); SPEC GRAVITY URINE 1.015 (1.003-1.035); TURBIDITY URINE 3+ (CLEAR); UROBILINOGEN URINE NORMAL (NORMAL)
[2016-12-06 21:49] LABS: RBC URINE FULL FIELD #/HPF (NEGATIVE)
[2016-12-06 21:51] LABS: BACTERIA URINE RARE (NEGATIVE)
[2016-12-07 04:02] LABS: BICARBONATE 15.8 mmol/L (18.0-23.0); PCO2 30 mmHg (35-45)
[2016-12-07 04:04] LABS: PO2 88 mmHg (80-90)
--- NOTE | 2016-12-07 05:09 | NUR ---
PT. CAME DOWN TO ICU FROM PCU ON 15L NON REBREATHER FOR INTUBATION. INTUBATED WITH A 7.5 ETT SECURED WITH ETAD 22 @ LIP AT 1940. VENT SETTINGS A/C RATE 12, VT400, PEEP 5, O2 WEANED DOWN TO 40% WITH SATS 94-98%. ETCO2 INITIALLY WAS 36 AND IS RANGING 28-32. BREATH SOUNDS ARE COARSE T/O. SUCTIONED A COPIOUS AMOUNT OF THICK BLOODY SECRETIONS. WILL CONTINUE TO MONITOR UNTIL FURTHER NOTICE.
[2016-12-07 06:20] LABS: HEMATOCRIT 29.1 % (33.0-46.0); HEMOGLOBIN 9.3 g/dL (10.0-15.0)
[2016-12-07 06:27] LABS: INR - (THERAPEUTIC) 2.32 (0.92-1.07); PROTIME 24.6 SECONDS (9.8-11.4)
--- NOTE | 2016-12-07 06:53 | NUR ---
PT ARRIVED TO ICU AT 1927, INTUBATED AT 194. HYPOTENSIVE FOR THIS RN, SO TOTAL OF 2.5 L NS GIVEN AND ELISEO-SYNEPHERINE STARTED. MAX RATE WAS 1.4 MCG/KG/MIN, WEANED TO 0.8 MCG/KG/MIN BY TIME SHIFT REPORT WAS GIVEN TO ONCOMING NURSE. UOP GREATLY INCREASED. VERSED GTT STARTED AT 2 MG/HR FOR SEDATION, PRECEDEX WEANED DOWN THROUGHOUT SHIFT. PT TAKEN TO CT FOR HEAD AND CHEST CT'S. DR. FROST UPDATED WITH CONCERS UNTIL [address] HA[address]LEY U[address] HAWLEY LAST UPDATED AT 0600 WITH PT STATUS. FAMILY IN AND OUT THROUGHOUT SHIFT, FAMILY UPDATED WITH PATIENT'S PROGRESS. MARY GUARDADO RN
[2016-12-07 09:27] LABS: POTASSIUM 4.2 mMol/L (3.7-5.1)
[2016-12-07 09:29] LABS: ANION GAP 19.2 (10.0-19.0); CALCIUM 6.1 mg/dL (8.5-10.5)
[2016-12-07 12:12] LABS: HEMOGLOBIN 8.6 g/dL (10.0-15.0)
--- NOTE | 2016-12-07 12:56 | NUR ---
A-CONSULT RECEIVED FOR UNDERWEIGHT HT: 62 IN. WT: 52.1 KG. BMI: 21.0 ON THE VENT; SEDATED W/PRECEDEX. ADMITTED FOR PNEUMONIA/CHEST PAIN. SUPERFICIAL WOUND TO STERNUM LABS: NA147, K+ 4.2, GLU 97, BUN 26, TECHNICAL MAINTENANCE TECHNICIAN 1.0, ALB 2.6 MEDS: LEVAQUIN, VANCOMYCIN, VERSED, ZOSYN, PRECEDEX, SUBLIMAZE, SOLU-MEDROL DIET RX: NPO EST NUTR NEEDS: 0600-7368 KCALS (28-32 KCALS/KG) 62-78 GM PROTEIN (1.2-1.5 GM/KG) PER MD D-AT NUTRITION RISK W/DIFF. SWALLOWING R/T VENT SUPPORT AEB NPO STATUS I-IF EN DESIRED, RECOMMEND OSMOLITE 1.5 AT A GOAL RATE OF 45 ML/HR. THIS WILL PROVIDE 1620 KCALS, 68 GM PROTEIN, AND 833 ML FREE WATER M/E-GOAL: START APPROPRIATE NUTRITION RX WHEN MEDICALLY INDICATED 1)F/U DIET RX AND POC IN 2-3 DAYS 2)ASSIST NEEDED
--- NOTE | 2016-12-07 16:40 | NUR ---
PT VENTED ON 40% SATS 96-100%, BREATH SOUNDS COARSE TO SLIGHTLY COARSE THROUGHOUT, SXN A MODERATE AMOUNT OF BLOOD TINGED BROWNISH CREAM SPUTUM, ETCO2 24-28 MOST OF THE DAY, PT RESTED THROUGHOUT THE DAY WILL CONTINUE TO WEAN AND TRY TO EXTUBATE LUZ ELENA.
--- NOTE | 2016-12-07 17:20 | NUR ---
Significant Event: Continues on vent lightly sedated with versed. Nods head and follows commands appropriately. Phenylephrine off most of afternoon, but restarted to keep MAP >65. Other vital signs stable. Family frequently updated at bedside. Follow up: continue
[2016-12-07 20:30] LABS: HEMATOCRIT 27.1 % (33.0-46.0); HEMOGLOBIN 8.5 g/dL (10.0-15.0)
[2016-12-08 04:04] LABS: BICARBONATE 16.4 mmol/L (18.0-23.0); PCO2 29 mmHg (35-45); PO2 101 mmHg (80-90)
[2016-12-08 05:16] LABS: HEMATOCRIT 26.3 % (33.0-46.0); HEMOGLOBIN 8.2 g/dL (10.0-15.0); MCH 29.8 pg (27.0-34.0); MCHC 31.2 gm/dL (32.0-36.5); MCV 95.6 fl (83.0-98.0); MPV 10.9 fl (9.4-12.4); PLATELET COUNT 233 K/uL (150-450); RBC 2.75 M/uL (3.50-5.50); RDW-CV 16.4 % (11.9-14.6)
[2016-12-08 05:18] LABS: WBC 22.3 K/uL (4.0-11.0)
[2016-12-08 05:19] LABS: INR - (THERAPEUTIC) 2.69 (0.92-1.07); PROTIME 28.5 SECONDS (9.8-11.4)
[2016-12-08 05:29] LABS: BLOOD UREA NITROGEN 29 mg/dL (6-24); CREATININE 0.7 mg/dL (0.5-1.1); ESTIMATED GFR (MDRD EQUATION) > 60; MAGNESIUM 2.5 mg/dL (1.8-2.6); POTASSIUM 3.8 mMol/L (3.7-5.1)
--- NOTE | 2016-12-08 05:34 | NUR ---
PT REMAINS INTUBATED, SEDATION OFF AT 0400 FOR CPAP TRIALS. DROWSY BUT AWAKENS EASILY, FOLLOWS COMMAND, ATTEMPTS TO COMMUNICATE. SR THROUGHOUT SHIFT, ELISEO GTT OFF AT 0053; BP APPROPRIATE, MAPS>65. AFEBRILE. CURRENTLY IN CPAP ON VENT, TOLERATING WELL. NO BM THIS SHIFT. UOP ADEQUATE. PLAN TO EXTUBATE TODAY IF CONTINUES TO TOLERATE CPAP. MARY GUARDADO RN
[2016-12-08 05:35] LABS: ANION GAP 13.8 (10.0-19.0); CALCIUM 6.1 mg/dL (8.5-10.5); CHLORIDE 120 mMol/L (96-110); CO2 17 mMol/L (22-32); SODIUM 147 mMol/L (135-145)
[2016-12-08 05:54] LABS: ABSOLUTE NEUTROPHIL CT (ANC) 21.2 K/uL (1.8-7.8); BANDED NEUTROPHILS % 45 %; LYMPHOCYTE # 0.7 K/uL (0.8-4.0); LYMPHOCYTE % 3 %; MONOCYTE # 0.2 K/uL (0.0-1.0); SEGMENTED NEUTROPHIL # 11.2 K/uL (1.8-7.8); SEGMENTED NEUTROPHIL % 50 %
--- NOTE | 2016-12-08 14:45 | NUR ---
Introduced self and role of care management to patient's . Patient and live in [place]. Taled to him about skilled care and he says his children had mentioned SB to him. He says she was weak before coming to the hospital so he anticipates she tomas need a SB stay in [place] before going home. Will make referral in the next day or two to [place] [facility]. Will follow.
--- NOTE | 2016-12-08 16:31 | NUR ---
PT VENTED ON 40% SATS 95-98%, BREATH SOUNDS SLIGHTLY COARSE THROUGHOUT BUT CLEAR SOME WITH SXN, SXN A MODERATE AMOUNT OF BROWN CREAMY SPUTUM, ETCO2 26-30 MOST OF THE DAY, WILL CONTINUE TO MONITOR AND TRY TO EXTUBATE IN THE MORNING
[2016-12-09 04:23] LABS: PCO2 32 mmHg (35-45); PO2 83 mmHg (80-90)
[2016-12-09 04:24] LABS: BICARBONATE 20.3 mmol/L (18.0-23.0)
--- NOTE | 2016-12-09 05:07 | NUR ---
Patient remained on 40$ FiO2 through out shift with saturations in the mid 90's. End tidal has ran 24-29. Breath sounds have been coarse, clearing with suctioning to slightly coarse. Suctioning scant to moderate amounts of brown sputum.
[2016-12-09 05:09] LABS: HEMATOCRIT 24.9 % (33.0-46.0); MCH 29.9 pg (27.0-34.0); MCHC 32.1 gm/dL (32.0-36.5); MCV 92.9 fl (83.0-98.0); MPV 10.8 fl (9.4-12.4); PLATELET COUNT 228 K/uL (150-450); RBC 2.68 M/uL (3.50-5.50); RDW-CV 16.2 % (11.9-14.6)
[2016-12-09 05:17] LABS: WBC 28.3 K/uL (4.0-11.0)
[2016-12-09 05:19] LABS: INR - (THERAPEUTIC) 2.29 (0.92-1.07); PROTIME 24.3 SECONDS (9.8-11.4)
[2016-12-09 05:27] LABS: BLOOD UREA NITROGEN 31 mg/dL (6-24); CHLORIDE 115 mMol/L (96-110); CO2 18 mMol/L (22-32); CREATININE 0.8 mg/dL (0.5-1.1); ESTIMATED GFR (MDRD EQUATION) > 60; MAGNESIUM 2.6 mg/dL (1.8-2.6); POTASSIUM 3.1 mMol/L (3.7-5.1)
--- NOTE | 2016-12-09 05:30 | NUR ---
Significant Event: PATIENT ALERT, FOLLOWS COMMANDS APPROPRIATELY X ALL 4 EXTREMETIES. VERSED STOPPED AT 0500 FOR SEDATION VACATION, POSSIBLE EXTUBATION IN AM. PRESSERS NOT NEEDED T/O NOC. MAPS>65. L)HAND EDEMA NOTED. DC'D L) HAND PIV. SUCTIONING THICK BROWN SECRETIONS FROM ET TUBE. LS COARSE AT TIMES. Follow up: BREATHING TRIALS
[2016-12-09 05:31] LABS: ANION GAP 16.1 (10.0-19.0); CALCIUM 6.9 mg/dL (8.5-10.5); SODIUM 146 mMol/L (135-145)
[2016-12-09 06:06] LABS: ABSOLUTE NEUTROPHIL CT (ANC) 27.7 K/uL (1.8-7.8); BANDED NEUTROPHIL # 5.9 K/uL (0.0-0.1); BANDED NEUTROPHILS % 21 %; LYMPHOCYTE # 0.6 K/uL (0.8-4.0); LYMPHOCYTE % 2 %; SEGMENTED NEUTROPHIL # 21.8 K/uL (1.8-7.8); SEGMENTED NEUTROPHIL % 77 %
--- NOTE | 2016-12-09 10:28 | NUR ---
A - NUTRITION FOLLOW-UP. VENT, VERSED OFF. PALLIATIVE CONSULT FOR SUPPORTIVE PER RN. LABS: NA 146, K+ 3.1, GLU 279, BUN 31, ALB 2.6 MEDS: D5W AT 50ML/HR. DIET: TF W/ OSMOLITE 1.5 AT 45ML/HR, TOLERATING TF PER SHIFT REPORT. THIS REGIMEN WILL PROVIDE 1620 KCAL, 68 GRAMS PROTEIN, 833ML FREE WATER. HIGH SODIUM LEVEL NOTED. EST NEEDS: [id number] KCAL, 62-78 GRAMS PROTEIN, FLUID NEEDS: 1ML/KCAL D - INADEQUATE ORAL INTAKE RELATED TO INABILITY TO FEED ORALLY EVIDENCED BY INTUBATION AND NEED FOR ENTERAL NUTRITION, ON-GOING. I - RECOMMEND 30ML/HR WATER FLUSHES IF NO IV FLUID OR PER MD FOR ELEVATED SODIUM LEVEL. M/E - GOAL: CONTINUE TO TOLERATE ENTERAL NUTRITION AND MEET >75% OF NEEDS IN 3-5 DAYS.
--- NOTE | 2016-12-09 15:47 | NUR ---
D: RESPIRATORY FAILURE I: V2OO, ALBUTEROL MDI R: BREATH SOUNDS COARSE TO SLIGHTLY COARSE/ DECREASED LOWER LOBES, SXN- MODERATE/LARGE THICK REBOLLEDO/BLD TINGED, ET TUBE SECURE P: CONTINUE CURRENT THERAPY
--- NOTE | 2016-12-09 17:39 | NUR ---
Significant Event: Patient remains on the vent with no sedation. Follows commands, communicates by writing. SR with HRs 60s-80s, MAPS >65, afebrile. Lungs sounds have been course to slightly course throughout. Patient did not tolerate CPAP, lasted 4 mins, RR 40s, HR 90s. BM x1. Adequate UOP. Replaced KCL. Follow up:CPAP trials.
[2016-12-10 04:27] LABS: HEMATOCRIT 26.3 % (33.0-46.0); HEMOGLOBIN 8.4 g/dL (10.0-15.0); MCH 29.2 pg (27.0-34.0); MCHC 31.9 gm/dL (32.0-36.5); MCV 91.3 fl (83.0-98.0); MPV 11.1 fl (9.4-12.4); PLATELET COUNT 256 K/uL (150-450); RBC 2.88 M/uL (3.50-5.50); RDW-CV 16.1 % (11.9-14.6)
[2016-12-10 04:29] LABS: WBC 33.7 K/uL (4.0-11.0)
[2016-12-10 04:34] LABS: ANION GAP 14.8 (10.0-19.0); BLOOD UREA NITROGEN 25 mg/dL (6-24); CHLORIDE 113 mMol/L (96-110); CO2 21 mMol/L (22-32); CREATININE 0.7 mg/dL (0.5-1.1); ESTIMATED GFR (MDRD EQUATION) > 60; MAGNESIUM 2.3 mg/dL (1.8-2.6); POTASSIUM 3.8 mMol/L (3.7-5.1); SODIUM 145 mMol/L (135-145)
[2016-12-10 04:38] LABS: ALBUMIN 1.8 gm/dL (3.5-5.0); CALCIUM 7.4 mg/dL (8.5-10.5); PHOSPHORUS 0.5 mg/dL (2.5-4.9)
[2016-12-10 04:42] LABS: BICARBONATE 23.1 mmol/L (18.0-23.0); PCO2 31 mmHg (35-45); PO2 68 mmHg (80-90)
[2016-12-10 04:43] LABS: INR - (THERAPEUTIC) 1.2 (0.92-1.07); PROTIME 12.6 SECONDS (9.8-11.4)
--- NOTE | 2016-12-10 05:03 | NUR ---
Patient was weaned down to 30% FiO2. All other settings remain the same. Patient's breath sounds are coarse. Suctioning moderate amounts of thick brown. Will continue to monitor.
[2016-12-10 05:23] LABS: ABSOLUTE NEUTROPHIL CT (ANC) 31.3 K/uL (1.8-7.8); BANDED NEUTROPHIL # 7.8 K/uL (0.0-0.1); BANDED NEUTROPHILS % 23 %; LYMPHOCYTE # 1.3 K/uL (0.8-4.0); LYMPHOCYTE % 4 %; SEGMENTED NEUTROPHIL # 23.6 K/uL (1.8-7.8); SEGMENTED NEUTROPHIL % 70 %
--- NOTE | 2016-12-10 05:57 | NUR ---
Significant Event: ALERT ET COOPERATIVE, FOLLOWS COMMANDS APPROPRIATELY, PLEASANT. PATIENT TO VENT 30% FIO2 A/C MODE. OVERBREATHS VENT AT TIMES. C/O DIFFICULTY BREATHING, SXN FOR SMALL AMTS OF THICK DARK REBOLLEDO. LOOSE STOOLS X3 THIS SHIFT. Follow up: WEANING TRIALS
--- NOTE | 2016-12-10 16:33 | NUR ---
Significant Event: Patient Alert and oriented x3. Extubated at 1055 to 4L NC, lung sounds have be course to slightly course through out. SR with HRs 60s-70s. Afebrile. Patient passed bedside swallow study, advanced to regular diet. Bowel sounds have been hypoactive, BM x1. Lasix given, appropriate UOP. WBC increased, vanco started. Follow up: Continue
--- NOTE | 2016-12-10 17:53 | NUR ---
D: PNEUMONIA I: DUONEB R: PT WAS EXTUBATED @ 10:55 TO A 4 LPM NC, STARTED BREATHING TX'S @ 13:00, WEANED O2 TO 2 LPM, BS C&D BILATERALLY, STARTED IS/FV WELL, PT GETS 250-500 ON IS & SHE DOES A GREAT FV P: CONT TO WEAN O2 TOLERATES
--- NOTE | 2016-12-11 04:41 | NUR ---
Significant Event: Patient remains A/O x3, pleasant et cooperative. O2 at 2L via NS, sats >90%. LS coarse but clears after spontaneous cough. Moist loose cough productive of small amounts of thick harden sputum. Up to chair, ate 25% of dinner. Transferred to bed 2A using FWW. Follow up: Continue to monitor
[2016-12-11 05:16] LABS: HEMOGLOBIN 9.3 g/dL (10.0-15.0); MCH 29.2 pg (27.0-34.0); MCHC 32.1 gm/dL (32.0-36.5); MCV 90.9 fl (83.0-98.0); MPV 10.8 fl (9.4-12.4); PLATELET COUNT 293 K/uL (150-450); RBC 3.19 M/uL (3.50-5.50)
[2016-12-11 05:19] LABS: INR - (THERAPEUTIC) 1.15 (0.92-1.07); PROTIME 12.1 SECONDS (9.8-11.4)
[2016-12-11 05:21] LABS: WBC 34.5 K/uL (4.0-11.0)
[2016-12-11 05:26] LABS: ANION GAP 11.6 (10.0-19.0); BLOOD UREA NITROGEN 22 mg/dL (6-24); CALCIUM 7.5 mg/dL (8.5-10.5); CHLORIDE 109 mMol/L (96-110); CO2 28 mMol/L (22-32); CREATININE 0.6 mg/dL (0.5-1.1); ESTIMATED GFR (MDRD EQUATION) > 60; MAGNESIUM 1.9 mg/dL (1.8-2.6); POTASSIUM 3.6 mMol/L (3.7-5.1); SODIUM 145 mMol/L (135-145)
[2016-12-11 05:33] LABS: PHOSPHORUS 1.9 mg/dL (2.5-4.9)
[2016-12-11 05:59] LABS: ABSOLUTE NEUTROPHIL CT (ANC) 31.7 K/uL (1.8-7.8); BANDED NEUTROPHIL # 1.4 K/uL (0.0-0.1); BANDED NEUTROPHILS % 4 %; LYMPHOCYTE # 1.4 K/uL (0.8-4.0); LYMPHOCYTE % 4 %; MONOCYTE # 1.4 K/uL (0.0-1.0); SEGMENTED NEUTROPHIL # 30.4 K/uL (1.8-7.8); SEGMENTED NEUTROPHIL % 88 %
--- NOTE | 2016-12-11 09:41 | NUR ---
Significant Event: PT A&O x3. VSS, O2 at 2L per nasal cannula. PT ambulates with 1 assist, gait belt and walker. PIV patent. Tylenol given at 0700 for c/o headache, relief noted. Dressing intact to chest. Tolerating diet. Follow up:
--- NOTE | 2016-12-11 16:54 | NUR ---
Significant Event: A/O x3, cooperative with cares. VSS, SBPs 140-150s, HRs 60-70s, oxygen at 2 liters. No c/o pain. 30 mmol of Kphos given today. Up with 1-2 assist to BSC; up to chair. PT/OT working with patient. Has voided since violeta mack. Follow up: OR on Tuesday; NPO after ht Tuesday
[2016-12-12 02:55] LABS: HEMATOCRIT 33.4 % (33.0-46.0); HEMOGLOBIN 10.7 g/dL (10.0-15.0); MCH 29.6 pg (27.0-34.0); MCV 92.5 fl (83.0-98.0); MPV 10.5 fl (9.4-12.4); RBC 3.61 M/uL (3.50-5.50); RDW-CV 16.1 % (11.9-14.6)
[2016-12-12 02:59] LABS: PLATELET COUNT 372 K/uL (150-450); WBC 33.5 K/uL (4.0-11.0)
[2016-12-12 03:01] LABS: INR - (THERAPEUTIC) 1.21 (0.92-1.07); PROTIME 12.7 SECONDS (9.8-11.4)
[2016-12-12 03:10] LABS: ANION GAP 10.1 (10.0-19.0); BLOOD UREA NITROGEN 22 mg/dL (6-24); CALCIUM 7.5 mg/dL (8.5-10.5); CHLORIDE 109 mMol/L (96-110); CO2 27 mMol/L (22-32); CREATININE 0.6 mg/dL (0.5-1.1); ESTIMATED GFR (MDRD EQUATION) > 60; MAGNESIUM 1.7 mg/dL (1.8-2.6); PHOSPHORUS 1.6 mg/dL (2.5-4.9); POTASSIUM 3.1 mMol/L (3.7-5.1); SODIUM 143 mMol/L (135-145)
[2016-12-12 04:15] LABS: ABSOLUTE NEUTROPHIL CT (ANC) 30.2 K/uL (1.8-7.8); BANDED NEUTROPHIL # 0.7 K/uL (0.0-0.1); BANDED NEUTROPHILS % 2 %; LYMPHOCYTE % 6 %; MONOCYTE # 1.3 K/uL (0.0-1.0); SEGMENTED NEUTROPHIL # 29.5 K/uL (1.8-7.8); SEGMENTED NEUTROPHIL % 88 %
--- NOTE | 2016-12-12 05:22 | NUR ---
A&O. VSS. Afebrile. 2-3 ltrs O2. Desats with activity. Tylenol given for headache - effective. 1 assist with gait belt and walker to BSC. PT/OT. Dressing to chest intact. Harsh productive cough. Phillip at bedside for patient to use as desired. Pradeep. Surgery Tuesday- NPO at midnight Tuesday.
--- NOTE | 2016-12-12 17:22 | NUR ---
Significant Event: A/o x3, cooperative with cares. VSS, SBPs 140-160s, HRs 60-80s, oxygen at 3 liters. Tylenol given at 0659 for c/o KITCHEN; relief noted. 40 mEq of oral KCL given for a level of 3.1 along with 30 mmol of potassium phospate with a phosphorous level of 1.6. 2 gm of IV magnesium given for a level of 1.7. Up with assist of 1 et walker; ambulated larson x2 today. Plan is for surgery on Tuesday for removal of sternal wires. Follow up: needs to have IV bumex after gtts completed
[2016-12-13 05:01] LABS: HEMATOCRIT 30.6 % (33.0-46.0); HEMOGLOBIN 9.8 g/dL (10.0-15.0); MCH 29.2 pg (27.0-34.0); MCV 91.1 fl (83.0-98.0); MPV 10.6 fl (9.4-12.4); PLATELET COUNT 402 K/uL (150-450); RBC 3.36 M/uL (3.50-5.50); RDW-CV 15.9 % (11.9-14.6)
[2016-12-13 05:06] LABS: INR - (THERAPEUTIC) 1.14 (0.92-1.07)
[2016-12-13 05:15] LABS: PHOSPHORUS 2.2 mg/dL (2.5-4.9); POTASSIUM 3.5 mMol/L (3.7-5.1)
[2016-12-13 05:20] LABS: WBC 30.2 K/uL (4.0-11.0)
--- NOTE | 2016-12-13 06:08 | NUR ---
A&O. Cooperative. Stronger getting herself out of bed than previous shift. Samantha mack. Coughing seems to be improving. 1 assist to bathroom with GB/W. Surgery Tuesday for sternal wire removal. NPO at midnight. VSS.
[2016-12-13 06:27] LABS: ABSOLUTE NEUTROPHIL CT (ANC) 26.9 K/uL (1.8-7.8); LYMPHOCYTE # 2.1 K/uL (0.8-4.0); LYMPHOCYTE % 7 %; MONOCYTE # 1.5 K/uL (0.0-1.0); SEGMENTED NEUTROPHIL # 26.9 K/uL (1.8-7.8); SEGMENTED NEUTROPHIL % 89 %
--- NOTE | 2016-12-13 18:14 | NUR ---
Significant Event: A/O x3, cooperative with cares. VSS, SBPs 140-160s, HRs 70s, oxygen 2 liters. No c/o pain. Recieved 2 gm of IV magnesium sulfate along with 30 mmol of potassium phosphorous along with 40 mEq oral KCL today. K+ 3.5 et phosphorous 2.2 today. Care management consult for swingbed placement. Plan is for patient to have a sternal wire removal in the AM with Dr. Rodríguez; procedure is planned for 0800. Will be up to get patient around 0600. Up with assist of 1 et walker to bathroom. PT/OT working with patient, ambulate in larson. Follow up: Needs to recieve IV bumex after Kphos complete.
[2016-12-14 03:25] LABS: HEMOGLOBIN 9.5 g/dL (10.0-15.0); MCH 29.2 pg (27.0-34.0); MCHC 31.7 gm/dL (32.0-36.5); MCV 92.3 fl (83.0-98.0); MPV 10.2 fl (9.4-12.4); PLATELET COUNT 446 K/uL (150-450); RBC 3.25 M/uL (3.50-5.50); RDW-CV 15.9 % (11.9-14.6)
[2016-12-14 03:27] LABS: WBC 27.4 K/uL (4.0-11.0)
[2016-12-14 03:34] LABS: INR - (THERAPEUTIC) 1.1 (0.92-1.07); PROTIME 11.6 SECONDS (9.8-11.4)
[2016-12-14 03:45] LABS: ANION GAP 13.1 (10.0-19.0); BLOOD UREA NITROGEN 14 mg/dL (6-24); CALCIUM 7.7 mg/dL (8.5-10.5); CHLORIDE 106 mMol/L (96-110); CO2 27 mMol/L (22-32); CREATININE 0.6 mg/dL (0.5-1.1); ESTIMATED GFR (MDRD EQUATION) > 60; MAGNESIUM 1.9 mg/dL (1.8-2.6); POTASSIUM 4.1 mMol/L (3.7-5.1); SODIUM 142 mMol/L (135-145)
[2016-12-14 05:30] LABS: ABSOLUTE NEUTROPHIL CT (ANC) 22.2 K/uL (1.8-7.8); BANDED NEUTROPHIL # 0.8 K/uL (0.0-0.1); BANDED NEUTROPHILS % 3 %; LYMPHOCYTE # 3.8 K/uL (0.8-4.0); LYMPHOCYTE % 14 %; MONOCYTE # 1.1 K/uL (0.0-1.0); SEGMENTED NEUTROPHIL # 21.4 K/uL (1.8-7.8); SEGMENTED NEUTROPHIL % 78 %
--- NOTE | 2016-12-14 06:33 | NUR ---
A&O. Cooperative. Bumex last night- voiding often. SCDs (although didn't want on last noc d/t Bumex). NPO last noc for surgery today. Left floor at 0600. 2-3 ltrs O2. 1 assist. Swingbed at discharge.
--- NOTE | 2016-12-14 12:20 | NUR ---
Talked with patient and spouse, they would like pt to go to [facility] on discharge, hoping to go tomorrow. Ailyn Ramirez APRN is pt primary care provider. Spouse will transport. Understands if needs O2 for transport would be out of pocket cost, respiratory therapy would set that up for them. Will see if can be weaned. Called [facility] in [place] [phone] and left message for swingbed coordinator to call me back. Faxed referral to [facility] at nurses station [phone]. Waiting call back to see if they will accept to [facility] tomorrow.
--- NOTE | 2016-12-14 12:54 | NUR ---
Received call from swingbed coordinator at [facility] in [place], they will accept tomorrow. Phone number for our physician to call Ailyn Ramirez, [employer] is [phone], will put that number on chart. [employer] will followup in the morning.
--- NOTE | 2016-12-14 13:21 | NUR ---
A-NUTRITION F/U EXTUBATED AND TF D/C ON 12/10 NPO THIS AM FOR STERNAL WIRE REVISION LABS: ALB 1.8 MEDS: PROTONIX, NORCO, ZOFRAN, REGLAN, PRN BOWEL MEDS. HAS BEEN RECEIVING BUMEX DIET RX: REGULAR. PO INTAKE SINCE EXUBATION HAS BEEN 25-100% EST NUTR NEEDS (RE-EVALUATED): [id number] KCALS (30-35 KCALS/KG) AND 54-78 GM PROTEIN (1.1-1.6 GM/KG). D-AT NUTRITION RISK W/INCREASED NUTRIENT NEEDS R/T HEALING AEB STERNAL WOUND I-START ENSURE ENLIVE TID W/MEALS TO PROVIDE ADDITIONAL NUTRIENTS M/E-GOAL: PO INTAKE >/=50% PRIOR TO DISCHARGE 1)F/U PO INTAKE, SUPPLEMENT, SKIN, AND POC IN 3-5 DAYS 2)ASSIST NEEDED
--- NOTE | 2016-12-14 17:45 | NUR ---
PATIENT HAS BEEN DOING WELL TODAY AFTER STERNAL WIRES WERE REMOVED. SHE HAS WALKED IN WINTER X2 TODAY. DENIES PAIN. IS TRYING TO IMPROVE HER EATING FOR HEALING AND STRENGTH.
[2016-12-15 04:27] LABS: BASOPHIL % 0.1 %; EOSINOPHIL # 0.1 K/uL (0.0-0.5); EOSINOPHIL % 0.5 %; HEMATOCRIT 31.4 % (33.0-46.0); HEMOGLOBIN 9.8 g/dL (10.0-15.0); IMMATURE GRANULOCYTE # 0.6 K/uL (0.0-0.3); IMMATURE GRANULOCYTE % 2.5 %; LYMPHOCYTE % 8.6 %; MCH 29.2 pg (27.0-34.0); MCHC 31.2 gm/dL (32.0-36.5); MCV 93.5 fl (83.0-98.0); MONOCYTE # 1.2 K/uL (0.0-1.0); MONOCYTE % 5.3 %; MPV 10.2 fl (9.4-12.4); NRBC % 0 /100WBC (0-0.00); PLATELET COUNT 531 K/uL (150-450); RBC 3.36 M/uL (3.50-5.50); RDW-CV 16.2 % (11.9-14.6); WBC 22.8 K/uL (4.0-11.0)
[2016-12-15 04:37] LABS: INR - (THERAPEUTIC) 1.14 (0.92-1.07)
[2016-12-15 04:43] LABS: ALBUMIN 2.2 gm/dL (3.5-5.0); ANION GAP 13.4 (10.0-19.0); BLOOD UREA NITROGEN 21 mg/dL (6-24); CALCIUM 8.4 mg/dL (8.5-10.5); CHLORIDE 109 mMol/L (96-110); CO2 28 mMol/L (22-32); CREATININE 0.9 mg/dL (0.5-1.1); ESTIMATED GFR (MDRD EQUATION) > 60; PHOSPHORUS 2.8 mg/dL (2.5-4.9); POTASSIUM 5.4 mMol/L (3.7-5.1); SODIUM 145 mMol/L (135-145)
--- NOTE | 2016-12-15 04:48 | NUR ---
A&O. Cooperative with cares. SBA with GB/W. VSS. 2 ltr O2. Had sternal wires removed yesterday- mepilex CDI. Tylenol given x 1 for pain. [place] swing bed today.
--- NOTE | 2016-12-15 04:51 | NUR ---
A&O. Cooperative with cares. VSS. 2ltr O2. 1 assist with GB/W. Sternal wires removed yesterday- Mepilex CDI. Tylenol given x 1 this shift. Discharge to [facility] bed today.
--- NOTE | 2016-12-15 11:40 | NUR ---
PATIENT WAS ADMITTED ON 12/06/16 WITH RESPIRATORY DISTRESS AND FAILURE SHE WAS INTUBATED AND IN ICU. TODAY SHE HAS BEEN WEANED OFF OXYGEN AND SATURATIONS ARE >90% ON ROOM AIR. WHEN AMBULATING HER SATS WILL DECREASE TO 87% BUT WITH REST RETURNS TO >90% IN A SHORT AMOUNT OF TIME. SHE HAS A CHEST DRESSING FROM HAVING STERNAL WIRES REMOVED. INSTRUCTIONS FOR CARE ARE ON ORDERS FOR SWING BED. PATIENT IS A 1 ASSIST WITHA GAIT BELT. SHE WILL AMBULATE IN WINTER WITH STANDBY ASSIST WITH GAIT BELT. PATIENT HAS BOWEL MOVEMENT THIS AM. LAST VITAL SIGNS 98.3, 18, 109 WITH AMBULATION, 92% ROOM AIR, 124/58. SHE HAS SCATTERED BRUISING ON HER SKIN BUT NO OPEN AREAS.
--- NOTE | 2016-12-15 12:15 | NUR ---
Several calls this a.m. with staff at [facility] in [place]. They can accept patient today pending to Dr. wilson. Did tell them Dr. Christy left [facility] this a.m. for Ailyn Hernandez APRN. Talked to patient, her , DIL and granddaughter regarding transfer today to . will transport her. Orders faxed to SB. Nurse will call nurse to nurse report. Nurse called and said patient ready to leave but Dr. Christy says Ailyn Andersen has not called him back. Called and spoke with Mala SB Coordinator at [facility], regarding patient ready to leave but Ailyn Andersen APRN has not called back. Mala says she talked to Ailyn earlier and she reviewed the orders with her. She says Ailyn is at lunch and probably won't call back until after that. Mala says patient can go ahead and leave here and she will make sure Ailyn calls Dr. Christy back before patient arrives. Updated patient and DIL. Patient to transfer via private vehicle today to [facility] in [place] for skilled care.
--- NOTE | 2016-12-15 14:19 | NUR ---
REPORT CALLED TO [facility] SWING BED AT 1330.
[2017-01-14] MEDS ORDERED: LOVENOX80 MG/0.8 SUB-Q (15:06)
== END 2016-12-15 12:15 | disposition swing bed (61) | DRG 853 ==
LOC: GICU 14:43 → GPCU 14:43 → GICU 19:45 → GPCU 12-11 09:52
PROVIDERS: Hospitalist; Thoracic Surgery (Cardiothoracic Vascular Surgery); ADMIT Internal Medicine
DX: A41.9 Sepsis, unspecified organism (principal); R65.21 Severe sepsis with septic shock; J96.01 Acute respiratory failure with hypoxia; J15.212 Pneumonia due to Methicillin resistant Staphylococcus aureus; E43 Unspecified severe protein-calorie malnutrition; J18.9 Pneumonia, unspecified organism; G93.40 Encephalopathy, unspecified; J44.0 Chronic obstructive pulmonary disease with (acute) lower respiratory infection; E87.0 Hyperosmolality and hypernatremia; I48.0 Paroxysmal atrial fibrillation; J96.20 Acute and chronic respiratory failure, unspecified whether with hypoxia or hypercapnia; J44.1 Chronic obstructive pulmonary disease with (acute) exacerbation; E11.9 Type 2 diabetes mellitus without complications; Z79.82 Long term (current) use of aspirin; Z95.1 Presence of aortocoronary bypass graft; E87.6 Hypokalemia; Z68.21 Body mass index [BMI] 21.0-21.9, adult; Z95.2 Presence of prosthetic heart valve; I10 Essential (primary) hypertension; E78.5 Hyperlipidemia, unspecified; Z79.01 Long term (current) use of anticoagulants; I25.10 Atherosclerotic heart disease of native coronary artery without angina pectoris; T85.898A Other specified complication of other internal prosthetic devices, implants and grafts, initial encounter; Z51.5 Encounter for palliative care; E83.39 Other disorders of phosphorus metabolism; E83.42 Hypomagnesemia
CPT/HCPCS: C9113; J0610; J1650; J1940; J1956; J2250; J2370; J2543; J2704; J2920; J3010; J3370; J3475; J3480; J7030; J7040; J7050; J7060; J7612; P9045

== ENCOUNTER → 2016-12-06 | Outpatient (CLI) | payer MEDICARE, OTHER ==
[~2016-12-06] MED LIST: AMOXICILLIN500 MG PO; CLEOCIN150 MG PO; COLACE100 MG PO; COUMADIN ** 9/62 MG PO; COUMADIN ** IA3 MG PO; CRESTOR10 MG PO; DUONEB INH; FLORASTOR250 MG PO; HUMIBID LA (MU600 MG PO; LOPRESSOR25 MG PO; LOVENOX80 MG/0.8 SUB-Q; MAGOX 400400 MG PO; METOCLOPRAMIDE H5 MG PO; MICARDIS20 MG PO; MULTAQ400 MG PO; NORCO 5-325 TA1 EACH PO; PANTOPRAZOLE SO40 MG PO; SYMBICORT 16010.2 GM INH; TYLENOL325 MG PO
== END | disposition disaster alternative care site (69) ==
LOC: GAIR 13:32
DX: A41.9 Sepsis, unspecified organism (principal); J44.9 Chronic obstructive pulmonary disease, unspecified; I48.2 Chronic atrial fibrillation; E78.5 Hyperlipidemia, unspecified; I10 Essential (primary) hypertension; E11.9 Type 2 diabetes mellitus without complications; I25.10 Atherosclerotic heart disease of native coronary artery without angina pectoris; R05 Cough; R50.9 Fever, unspecified; R07.89 Other chest pain; Z95.2 Presence of prosthetic heart valve; Z95.1 Presence of aortocoronary bypass graft; Z79.01 Long term (current) use of anticoagulants; Z79.899 Other long term (current) drug therapy
CPT/HCPCS: A0422; A0431; A0436

== ENCOUNTER 2017-01-14 17:00 | Inpatient (IN) | payer MEDICARE, OTHER ==
[~2017-01-14] VITALS: Ht 152.4 cm; Wt 47.9 kg
--- NOTE | ~2017-01-14 | OR ---
PATIENT'S NAME: HALIMA LORENZO [facility] AGE: 76 Y [address] [place] [facility] [place] [place], [place] [address] LOCATION: GPCU ADMIT DATE: 01/17/2017 OR/Procedure Report DISCHARGE DATE: FAMILY PHYSICIAN: Ailyn Ramirez APRN ATTENDING PHYSICIAN: Giovanni Rodríguez SURGEON: Giovanni Rodríguez DO LIVE IN CAREGIVER: DATE OF PROCEDURE: 01/17/2017 PREOPERATIVE DIAGNOSIS: Left lower lobe pneumonia with parapneumonic effusion concerning for empyema. POSTOPERATIVE DIAGNOSIS: Empyema with left lower lobe abscess. PROCEDURE PERFORMED: Left thoracoscopy with conversion to left video-assisted thoracic surgery, decortication of left lower lobe, and wedge resection of left lower lobe. BRIEF HISTORY: Mrs. Lorenzo is a 76-year-old white female with the above-noted diagnosis. She has been brought to the operative suite today after informed consent was obtained for her procedure. DESCRIPTION OF PROCEDURE: She was intubated with a dual-lumen endotracheal tube and then placed in the lateral decubitus position for a left thoracoscopic evaluation. Original port incision was created 2 fingerbreadths below the scapular tip approximately in between the mid and anterior axillary line. The adhesions were filmy and easily broken down with finger sweep. A thoracoscope was introduced. The lower lobe was markedly inflamed and contracted. Separate stab incisions were made anteriorly for accessory ports and then one posteriorly. Through the posterior one, we could tell that the pleura was markedly thickened. Once we had our scope and our other incisions made, decortication was performed. A large amount of purulence was encountered posteriorly. However, the peel could not be adequately resected through the thoracoscopic approach secondary to her marked kyphosis. Therefore, we made a small thoracotomy incision connecting the original port incision and the lateral incision, continued to use the videoscope for visualization, and performed total decortication of the left lower lobe. We encountered what appeared to be evidence of spontaneous ruptures of the left lower lobe abscess, and we resected this with endoscopic stapling device. We then copiously irrigated with 3 L of plain saline, placed two 24-Lao Jorge Luis drains. We had sent the fluid peel and the left lower lobe specimen for both microbiologic and histologic sampling. Thoracotomy incision was closed with 3 [id number] #1 Ethibond. Then, the muscular layer was closed with running 0 Vicryl, and then the fascia with 2-0 Vicryl and the skin with 4-0 Monocryl. The separate stab incision where the chest tubes were brought through were PATIENT'S NAME: HALIMA LORENZO [facility] AGE: 76 Y [address] ROOM: [place] [address] [facility] ADMIT DATE: 01/17/2017 OR/Procedure Report DISCHARGE DATE: FAMILY PHYSICIAN: Ailyn Ramirez APRN ATTENDING PHYSICIAN: Giovanni Rodríguez approximated with 0 Prolene. Chest tubes were placed to suction. The patient tolerated the procedure well and was extubated and transferred to the recovery room in stable condition. DO TITO ESPINOZA/rafael /[id number] d: 01/20/17 1439 t: 01/21/17 1009, OPERATIVE SUMMARY
--- NOTE | ~2017-01-14 | CON ---
PATIENT'S NAME: EMI LORENZO [facility] AGE: 76 Y [address] ROOM: [address] [place] [address] LOCATION: GPCU ADMIT DATE: 01/17/2017 Consultation DISCHARGE DATE: FAMILY PHYSICIAN: Ailyn Ramirez APRN ATTENDING PHYSICIAN: Giovanni Rodríguez DATE OF CONSULTATION: 01/20/2017 REFERRING PHYSICIAN: Kevon Coronado MD Consult to Dr. Giovanni Rodríguez. Emi Lorenzo is a 76-year-old woman with an uncharacterized IgG kappa monoclonal gammopathy. The history of the present illnessis obtained from visiting with the patient who is a reasonably good historian; her who is also helpful; Dr. Rodríguez; and review of the current and old [facility] record as well as records forwarded from her clinicians at the [facility] in [place], [place]. On 01/13/2017, a serum protein electrophoresis revealed a protein band of restricted mobility in an increased polyclonal gammaglobulin fraction. The pathologist recommended immunofixation electrophoresis. The serum protein electrophoresis also showed increases in alpha-1 and alpha-2 globulin fractions including a polyclonal increase in immunoglobulins and decreased albumin compatible with chronic inflammatory conditions. The immunofixation electrophoresis revealed an IgG kappa monoclonal protein, a total of 0.3 g/dL. The patient is seen in consultation to characterize the IgG kappa monoclonal gammopathy. The patient is currently on Dr. Rodríguez's Thoracic Surgery Service. She was referred from the [facility] [place] for characterization of a parapneumonic effusion complicating an earlier left lower lobe pneumonia. On 01/17/2017, Dr. Rodríguez performed a left thoracoscopy with conversion to a left video- assisted thoracic surgery, decortication of the left lower lobe, and wedge resection of the left lower lobe. Upon hospitalization in [facility], the patient's white count was 23,000 with 88% neutrophils and 5% lymphocytes, hemoglobin was 12.5 g/dL, MCV 90, and platelets 647,000. Yesterday, white count was 19,500, hemoglobin 9.4 g/dL, MCV 92, and platelets 416,000. The patient had 84% neutrophils and 7% lymphocytes. The renal panel was remarkable for an albumin of 2.4 g/dL, an EGFR of 60, and calcium of 8.7 mg/dL. Diphtheroids were present in the pleural fluid. A chest x-ray today revealed left chest tubes in place with no pneumothorax. PATIENT'S NAME: EMI LORENZO [facility] AGE: 76 Y [address] ROOM: [id number] [place], [place] [address] LOCATION: GPCU ADMIT DATE: 01/17/2017 Consultation DISCHARGE DATE: FAMILY PHYSICIAN: Ailyn Ramirez APRN ATTENDING PHYSICIAN: Giovanni Rodríguez Mrs. Lorenzo has no history of anemia, immunoproliferative disorder, and has never been told she had a monoclonal gammopathy. She does not believe she has any history of blood dyscrasias. Prior to her recent medical problems, about 2 months ago, the patient lived in [place], [place] with her . She was retired. She produced a quarter cup of dark sputum a day and occasional blood streaks. She found it difficult to read because of dry macular degeneration. She would walk 2-3 blocks a day or twice daily. She could drive and do all the housework including vacuuming. The patient was recently hospitalized from 12/06/2016 through 12/15/2016 for methicillin-sensitive Staph aureus pneumonia affecting both lungs. The patient was in acute hypoxic respiratory failure and required mechanical ventilation for 3 days during that hospitalization. The patient did not recover completely. She was unable to take walks. She had poor stamina. She recently developed an increased productive cough and her hemoglobin was less than 8 g/dL. 2 units of red blood cells helped her symptomatic anemia. The patient has had no fever, no rigors, and no chills, but she has developed some night sweats over the last few weeks. Her family insisted she see her clinician, Ailyn Ramirez, for followup. The patient reported no change in appetite and no change in dyspnea, no chest pain, but the chest x-ray was alarming enough that the patient was transported to [facility] on Dr. Rodríguez's Thoracic Surgery Service. ACTIVE MEDICAL PROBLEMS, CHRONIC AND DIAGNOSED: 1. Protein calorie malnutrition. 2. Subjective decreased auditory acuity. 3. COLD with centrilobular emphysema on CAT scan, treated with inhalers for 2 years. 4. Paroxysmal atrial fibrillation. 5. Atherosclerotic heart disease leading to a CABG in 2009. 6. Osteoporosis. The patient has lost 7 inches in height since 2001. 7. Essential arterial hypertension. The patient actually did not know she had this. 8. Hyperlipidemia, noted in 2013. 9. Acid peptic disease, requiring a partial gastrectomy in 2001. 10. Dry macular degeneration. 11. GERD. 12. Diet-controlled diabetes mellitus. 13. Atherosclerotic vascular disease with calcifications in the aorta, in the aortic arch. 14. 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 15. Generalized cerebral atrophy and white matter ischemic changes and vascular calcifications in the right and left internal carotid arteries and right vertebral artery. PATIENT'S NAME: EMI LORENZO [facility] AGE: 76 Y [address] ROOM: [place] [address] LOCATION: GPCU ADMIT DATE: 01/17/2017 Consultation DISCHARGE DATE: FAMILY PHYSICIAN: Ailyn Ramirez APRN ATTENDING PHYSICIAN: Giovanni Rodríguez 16. Diastolic dysfunction on echocardiogram. ACUTE MEDICAL ILLNESSES (RESOLVED), PAST SURGERIES, INJURIES: 1. 1944 - Tonsillectomy and adenoidectomy. 2. 1946 - appendectomy. 3. 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 4. 1970 - [place] and BSO for menometrorrhagia secondary to fibroid tumors. 5. 1990 - "Sinus surgery.". 6. 1987 - Right hip repair for right femoral neck fracture, this was pinned. 7. 1999 - Left hip pinning for left femoral neck fracture, closed reduction and percutaneous screw. 8. 2001 - Extracorporeal shock wave lithotripsy x2 for nephrolithiasis. 9. 2001 - Resection of parathyroid glands for hyperparathyroidism. The procedure was performed at the [facility]. 10. 2001 - Partial gastrectomy for acid peptic disease leading to gastrointestinal bleeding. 11. 2009 - One-vessel CABG with reversed saphenous vein graft to the PDA and simultaneous mitral valve repair with placement of a #29 bioprosthetic valve for mitral regurgitation. 12. 2010 - Right and left cataract extraction. 13. [id number] - Hospitalization for recurrent pneumonias twice a year. 14. 2016 - Hospitalization from 12/06 to 12/15 for acute respiratory failure secondary and MSSA pneumonia in both lungs with acute encephalopathy, increased troponins, and need for mechanical ventilation as well as complications of empyema. 15. Colonoscopy and breast biopsy in the past. The patient is not sure if she has had these procedures and denies the breast biopsy. MEDICATIONS: Upon admission: 1. Acetaminophen. 2. Amoxicillin for dental prophylaxis. 3. Budesonide/formoterol fumarate 1 puff inhaled twice daily. 4. Dronedarone 400 mg p.o. b.i.d. 5. Enoxaparin 80 mg subcutaneous daily. 6. Ipratropium/albuterol. 7. Metoclopramide 10 mg p.o. b.i.d. 8. Pantoprazole 40 mg p.o. q.24h. 9. Rosuvastatin 10 mg p.o. q.h.s. 10. Telmisartan 20 mg p.o. q.24h. 11. Warfarin sodium. ADVERSE REACTIONS TO MEDICATIONS, TRANSFUSIONS, ALLERGIES: 1. The patient has no known allergies. 2. The patient received packed red blood cells in 2009 and on this PATIENT'S NAME: EMI LORENZO [facility] AGE: 76 Y [address] ROOM: [place] [address] [facility] AD[facility] DATE: 01/17/2017 Consultation DISCHARGE DATE: FAMILY PHYSICIAN: Ailyn Ramirez APRN ATTENDING PHYSICIAN: Giovanni Rodríguez hospitalization. TOBACCO: None. ALCOHOL: None. CAFFEINE: Two cups of coffee per day. IMMUNIZATIONS: Positive flu, positive Pneumovax, positive tetanus, negative varicella zoster virus. FAMILY HISTORY: The patient denies any family history of emphysema and states she has never been told she had an alpha-1 antitrypsin deficiency. A daughter developed ovarian cancer at age 40 and was cured. The patient does not know if her daughter underwent genetic testing. SOCIAL HISTORY: The patient was born and raised a [place]. She went to [employer], but did not get her bachelor's degree, but got her "MRS" degree. She worked for [employer] in [place] for 30 years. Her was a grocer. They have a son in [place] and a daughter in [place]. There are methodists. REVIEW OF SYMPTOMS: 1. Nocturia. 2. Occasional heartburn. 3. Dysphagia for solids, little change recently. PHYSICAL EXAMINATION: VITAL SIGNS: Pulse 80 and regular, blood pressure 185/90, respiratory rate 20, temperature 99.8, and SpO2 92% on room air. Height 60 inches, weight 47.4 kg (104 pounds), BMI 20.4 kg/m2. GENERAL: Well-developed, chronically ill, frail 76-year-old, female, in no acute distress. HEENT: Unremarkable. LYMPH NODES: Not palpable. NECK: Without JVD or carotid bruits. SKIN: Parrish angiomas. CHEST: Decreased breath sounds bilaterally with particular decreased breath sounds at the left base with a chest tube in place. Chest wall, healed PATIENT'S NAME: EMI LORENZO [facility] AGE: 76 Y [address] ROOM: [place] [address] LOCATION: GPCU ADMIT DATE: 01/17/2017 Consultation DISCHARGE DATE: FAMILY PHYSICIAN: Ailyn Ramirez APRN ATTENDING PHYSICIAN: Giovanni Rodríguez vertical scar over the sternum. BREASTS: Not examined. CV: Regular rhythm. No murmurs, bruits, or adventitious sounds. ABDOMEN: Healed vertical scar just to the left of midline from just below the umbilicus to the symphysis pubis and a healed vertical scar in the right lower quadrant. No masses, tenderness, or megaly. GENITALIA AND RECTAL: Not examined. EXTREMITIES: Without peripheral edema. Compression boots are present over the calf. NEUROLOGIC: The patient is alert and moves all 4 extremities. IMPRESSION: 1. A 76-year-old woman with an uncharacterized monoclonal gammopathy. 2. This is probably a monoclonal gammopathy of undetermined significance. 3% of the population of her age 50 has a monoclonal gammopathy of undetermined significance. 3. Her anemia is probably an anemia of chronic inflammation. 4. The monoclonal gammopathy should be characterized, so her clinicians can follow her and evaluate her for the possible development of an immunoproliferative disorder in the future. She probably does not need a bone marrow sample. The anemia is probably due to anemia of chronic inflammation. RECOMMENDATION: DIAGNOSTIC: 1. ESR, serum free light chains, quantitative immunoglobulins, ferritin, iron/TIBC, folate, B12, CBC, and reticulocyte count. 2. 24-hour urine for a urine protein electrophoresis and urine immunofixation electrophoresis. 3. Schedule a metastatic bone survey. 4. If these are all negative and her anemia improves with the resolution of her chronic inflammation, she probably will not need a bone marrow aspiration and biopsy. TREATMENT: 1. No antineoplastic therapy. 2. Continue other medications. PATIENT EDUCATION: 1. Told she had an uncharacterized monoclonal gammopathy. It is important to evaluate this, but we doubt if she will have a hematologic disorder. 2. We will try to gauge the chance that she could develop a hematologic disorder in the future and recommend a surveillance schedule to her primary clinicians based on that assessment. PATIENT'S NAME: EMI LORENZO [facility] AGE: 76 Y [address] ROOM: [place] [address] [facility] ADMIT DATE: 01/17/2017 Consultation DISCHARGE DATE: FAMILY PHYSICIAN: Ailyn Ramirez APRN ATTENDING PHYSICIAN: Giovanni Rodríguez KEVON CORONADO MD GKB/modl /[id number] CC: ESTEPHANIA De Jesus MD d: 01/21/17 0236 t: 01/21/17 0812, CONSULTATION REPORT
--- NOTE | ~2017-01-14 | DS ---
PATIENT'S NAME: HALIMA LORENZO [facility] AGE: 76 Y [address] ROOM: [address] [place], [place] [address] LOCATION: GPCU ADMIT DATE: 01/17/2017 Discharge Summary DISCHARGE DATE: 01/21/2017 FAMILY PHYSICIAN: Ailyn Ramirez APRN ATTENDING PHYSICIAN: Giovanni Campbell HOSPITAL COURSE: The patient is a 76-year-old white female who was transferred from [place] as per her primary care provider and accepted by Dr. Campbell due to shortness of breath, weakness, and findings of brown sputum with cough. The patient was recently hospitalized at [facility] approximately 2 to 3 weeks ago with septic pneumonia that required intubation. She had a CT done of the chest with findings of left lower lobe pneumonia with apparent parapneumonic effusion. The patient went directly to the OR upon admission to our hospital. In the operating room, Dr. Campbell performed a left thoracotomy with conversion to a left video-assisted thoracic surgery with decortication of the left lower lobe and a wedge resection of the left lower lobe. This was performed on January 17, 2017. Following the procedure, the patient transferred to the progressive care floor. She actually did quite well from a postoperative stance. She walked well with pulmonary rehab. She had no healing complications. Her chest tube remained intact until postoperative day 3, and it was discontinued. There was no pneumothorax on the followup chest x-ray. The patient's Coumadin had been restarted and adjusted as appropriate. The patient's antibiotics were adjusted to home dosing. Incidentally, her pathology returned as an organizing pneumonia. She was on the appropriate course of treatment, and the patient was found stable for discharge to home on 01/21/2017. DISCHARGE ORDERS: Include a diet with no restrictions. Activity levels with indications of no lifting greater than 5 pounds with the left upper extremity for 6 weeks. The patient is to see Dr. Campbell in followup in approximately 2 weeks. She is also to see Dr. Maciel or Dr. Bautista in 2 weeks with regard to a protein electrophoresis that had been drawn in [place]. Dr. Talley had consulted the patient in the hospital and was running studies that were pending. FINAL DIAGNOSES: Include: 1. Left lower lobe pneumonia with empyema. 2. Hypertension. 3. Paroxysmal atrial fibrillation, long-term anticoagulation. 4. Chronic obstructive pulmonary disease. 5. Monoclonal gammopathy. DISCHARGE MEDICATIONS: Include: 1. Metoclopramide 10 mg b.i.d. 2. Multaq 400 mg twice a day. PATIENT'S NAME: HALIMA LORENZO [facility] AGE: 76 Y [address] ROOM: [place] [address] LOCATION: GPCU ADMIT DATE: 01/17/2017 Discharge Summary DISCHARGE DATE: 01/21/2017 FAMILY PHYSICIAN: Ailyn Ramirez APRN ATTENDING PHYSICIAN: Giovanni Campbell 3. Protonix 40 mg daily. 4. Tylenol 325 mg 1 to 2 every 6 hours p.r.n. mild pain. 5. Crestor 10 mg at h.s. 6. Albuterol one puff t.i.d. 7. Micardis 20 mg daily. 8. Symbicort 160/4.5 mcg one puff p.r.n. 9. Cleocin 600 mg q.6 hours until gone. 10. Colace 100 mg twice a day. 11. Humibid LA 1200 mg twice a day. 12. Magnesium oxide 400 mg twice a day. 13. Metoprolol 25 mg twice a day. 14. Florastor 250 mg twice a day. 15. [place] 5/325 1 to 2 every 4 to 6 hours as needed. 16. Coumadin 2 mg every other day. Again, the patient will follow up with Oncology regarding the abnormal protein electrophoresis with further workup studies per Dr. Talley to be evaluated. The patient was told that while on antibiotics, her Coumadin levels may be altered due to the medication. She will follow up with her primary for appropriate INR therapy. The patient and verbalized understanding of the discharge orders. The patient is discharged to home in stable condition. JULIO CÉSAR WILKS APRN FOR GIOVANNI CAMPBELL DO DLQ/modl /[id number] d: 02/04/17 1436 t: 02/14/17 1032, DISCHARGE SUMMARY
[~2017-01-14 17:00] MED LIST changes: -CLEOCIN150 MG PO; -COLACE100 MG PO; -COUMADIN ** 9/62 MG PO; -FLORASTOR250 MG PO; -HUMIBID LA (MU600 MG PO; -LOPRESSOR25 MG PO; -MAGOX 400400 MG PO; -NORCO 5-325 TA1 EACH PO
[2017-01-17 09:37] LABS: BASOPHIL # 0.1 K/uL (0.0-0.2); BASOPHIL % 0.4 %; EOSINOPHIL % 0.1 %; HEMOGLOBIN 12.7 g/dL (10.0-15.0); IMMATURE GRANULOCYTE # 0.3 K/uL (0.0-0.3); IMMATURE GRANULOCYTE % 1.2 %; LYMPHOCYTE # 1.3 K/uL (0.8-4.0); LYMPHOCYTE % 5.4 %; MCV 90.2 fl (83.0-98.0); MONOCYTE % 4.5 %; MPV 8.8 fl (9.4-12.4); NEUTROPHIL # (ANC) 20.3 K/uL (1.8-7.8); NEUTROPHIL % 88.4 %; NRBC % 0 /100WBC (0-0.00); RDW-CV 15.9 % (11.9-14.6)
[2017-01-17 09:41] LABS: ALBUMIN 2.4 gm/dL (3.5-5.0); ANION GAP 13.6 (10.0-19.0); BLOOD UREA NITROGEN 12 mg/dL (6-24); CALCIUM 8.7 mg/dL (8.5-10.5); CHLORIDE 108 mMol/L (96-110); CO2 22 mMol/L (22-32); CREATININE 0.8 mg/dL (0.5-1.1); PHOSPHORUS 2.2 mg/dL (2.5-4.9); POTASSIUM 3.6 mMol/L (3.7-5.1); SODIUM 140 mMol/L (135-145)
[2017-01-17 09:42] LABS: HEMATOCRIT 41.4 % (33.0-46.0); MCH 27.7 pg (27.0-34.0); MCHC 30.7 gm/dL (32.0-36.5); PLATELET COUNT 647 K/uL (150-450); RBC 4.59 M/uL (3.50-5.50)
[2017-01-17 09:48] LABS: ESTIMATED GFR (MDRD EQUATION) > 60
[2017-01-17 09:58] LABS: INR - (THERAPEUTIC) 1.28 (0.92-1.07); PROTIME 13.5 SECONDS (9.8-11.4)
--- NOTE | 2017-01-17 19:26 | NUR ---
Significant Event: ALERT, DROWSEY. MS EXPERIMENTAL ROCKETSLED MECHANIC AT 1 EXPERIMENTAL ROCKETSLED MECHANIC DOSE, 8 MIN LO. ETCO2 30-34. LT. SURGICAL SITE WITH C/D/I DRESSING. PLEURAVAC WITH NOTED BLOODY DRAINGAE. NOTED SOME BUBBLING. SOLORIO PATENT, MINIMAL OUTPUT. NSR. TAKING CLEAR LIQUIDS. AT BEDSIDE. Follow up: CONT. TO MONITER POST SURIGICAL INTERVENTION
[2017-01-18 04:43] LABS: HEMOGLOBIN 9.2 g/dL (10.0-15.0); MCV 90.8 fl (83.0-98.0); RDW-CV 15.8 % (11.9-14.6)
[2017-01-18 04:47] LABS: HEMATOCRIT 29.7 % (33.0-46.0); MCH 28.1 pg (27.0-34.0); PLATELET COUNT 453 K/uL (150-450); RBC 3.27 M/uL (3.50-5.50); WBC 25.6 K/uL (4.0-11.0)
[2017-01-18 05:02] LABS: ANION GAP 11.5 (10.0-19.0); BLOOD UREA NITROGEN 14 mg/dL (6-24); CHLORIDE 108 mMol/L (96-110); CO2 24 mMol/L (22-32); CREATININE 0.8 mg/dL (0.5-1.1); ESTIMATED GFR (MDRD EQUATION) > 60; PHOSPHORUS 3.1 mg/dL (2.5-4.9); POTASSIUM 3.5 mMol/L (3.7-5.1); SODIUM 140 mMol/L (135-145)
[2017-01-18 05:15] LABS: ALBUMIN 1.8 gm/dL (3.5-5.0)
--- NOTE | 2017-01-18 05:22 | NUR ---
A/O. HR 70-80. SBP 120-140. 2L O2. FLUIDS AT 50ML/HR. ETCO2 MOTNITORING ON. MORPHINE MEDICAL VOUCHER CLERK 1MG DEMAND ONLY 8MIN LOCKOUT. 2 ATTEMPTS [address] INTACT 90ML OUT. SOLORIO INTACT. NO BM.
[2017-01-18 06:22] LABS: LYMPHOCYTE # 2.3 K/uL (0.8-4.0); LYMPHOCYTE % 9 %; MONOCYTE # 2.3 K/uL (0.0-1.0); SEGMENTED NEUTROPHIL % 82 %
--- NOTE | 2017-01-18 18:49 | NUR ---
Significant Event: ALERT & ORIENTED, DROWSY BUT AWAKENS EASILY. VSS, AFEBRILE. AFIB WITH RATES 140-150 FOR 1 HOUR THIS AM, AMIODARONE DRIP PER PROTOCOL, NSR 70-80'S NOW. 100 OUT FROM CHEST TUBE. MORPHINE CITRUS PICKER WITH 5MG GIVEN. ON 1-2L O2. REGULAR DIET. 350ML FROM SOLORIO. COMPLAINT OF L)WRIST PAIN WITH MOVEMENT, TRACE EDEMA NOTED. GAVE 3G IV MAG AND 40 MEQ ORAL POTASSIUM. Follow up: CXRAY IN AM
[2017-01-19 04:31] LABS: BASOPHIL % 0.2 %; EOSINOPHIL % 0.2 %; HEMATOCRIT 30.5 % (33.0-46.0); HEMOGLOBIN 9.4 g/dL (10.0-15.0); IMMATURE GRANULOCYTE # 0.1 K/uL (0.0-0.3); IMMATURE GRANULOCYTE % 0.6 %; LYMPHOCYTE # 1.3 K/uL (0.8-4.0); LYMPHOCYTE % 6.7 %; MCH 28.3 pg (27.0-34.0); MCHC 30.8 gm/dL (32.0-36.5); MCV 91.9 fl (83.0-98.0); MONOCYTE # 1.6 K/uL (0.0-1.0); MONOCYTE % 8.2 %; NEUTROPHIL # (ANC) 16.4 K/uL (1.8-7.8); NEUTROPHIL % 84.1 %; NRBC % 0 /100WBC (0-0.00); PLATELET COUNT 416 K/uL (150-450); RBC 3.32 M/uL (3.50-5.50); RDW-CV 16.1 % (11.9-14.6)
[2017-01-19 04:32] LABS: WBC 19.5 K/uL (4.0-11.0)
[2017-01-19 04:42] LABS: INR - (THERAPEUTIC) 3.09 (0.92-1.07); PROTIME 32.8 SECONDS (9.8-11.4)
[2017-01-19 04:44] LABS: ANION GAP 12.9 (10.0-19.0); BLOOD UREA NITROGEN 12 mg/dL (6-24); CHLORIDE 106 mMol/L (96-110); CO2 26 mMol/L (22-32); CREATININE 0.7 mg/dL (0.5-1.1); ESTIMATED GFR (MDRD EQUATION) > 60; POTASSIUM 3.9 mMol/L (3.7-5.1); SODIUM 141 mMol/L (135-145)
[2017-01-19 04:55] LABS: ALBUMIN 1.6 gm/dL (3.5-5.0); CALCIUM 7.4 mg/dL (8.5-10.5)
--- NOTE | 2017-01-19 05:35 | NUR ---
Significant Event: A/O, VSS, 2L O2, etco2 30s, CT to suction had 80ml out, dressing c.d.i, very weak harsh/productive cough, mcdaniel had 325ml out, patient states no flatus yet, up to bsc without results, Morphine LASTING MACHINE OPERATOR demand only, 3/2 attempts delivered, in sinus rhythm with Ammio gtt infusing per protocol Follow up: continue plan of care
--- NOTE | 2017-01-19 16:29 | NUR ---
Significant Event: a/o. VSS on 1L/NC. [place] given x1. patient states shes comfortable but has the most pain to L) wrist/hand which was injured somehow prior to admit - wrist is swollen. Up with 1 assist and doing well. 50ml out CT. CT to waterseal and CXR in AM. Follow up:
--- NOTE | 2017-01-19 17:22 | NUR ---
Introduced self and role of care management to pt. She lives up in [place] with her . She states her house is all set up and easy to get around in. She does not use any dme and does not plan to. I discussed dc plans and if swingbed or hhc will be needed and she denies. She has a daughter who can help if needed and her . Will continue to follow.
[2017-01-20 03:41] LABS: ANION GAP 10.9 (10.0-19.0); BLOOD UREA NITROGEN 10 mg/dL (6-24); CALCIUM 7.8 mg/dL (8.5-10.5); CHLORIDE 107 mMol/L (96-110); CO2 28 mMol/L (22-32); CREATININE 0.5 mg/dL (0.5-1.1); ESTIMATED GFR (MDRD EQUATION) > 60; MAGNESIUM 1.9 mg/dL (1.8-2.6); POTASSIUM 3.9 mMol/L (3.7-5.1); SODIUM 142 mMol/L (135-145)
[2017-01-20 03:43] LABS: ALBUMIN 1.6 gm/dL (3.5-5.0); PHOSPHORUS 1.5 mg/dL (2.5-4.9)
[2017-01-20 03:44] LABS: PROTIME 57.3 SECONDS (9.8-11.4)
[2017-01-20 03:45] LABS: INR - (THERAPEUTIC) 5.37 (0.92-1.07)
--- NOTE | 2017-01-20 04:23 | NUR ---
Significant Event: Patient alert and oriented x3. Vital signs stable. On 1-2L per NC. EtCO2 monitoring discontinued this shift. Patient remains stable. 1 tab [place] given x1 for complaints of pain to left wrist. Up with 1 assist in room. Chest tube continues to water seal. 50ml output. No fluctuations or tidaling noted. [place]rade patent with 450ml uop. Patient calm and cooperative with all cares. Follow up: Chest X-Ray this morning.
--- NOTE | 2017-01-20 12:36 | NUR ---
Pt's visitor removed Bipap and put machine into standby mode. Pt was satting 76% on room air, replaced Bipap and informed family to not touch machine or mask without assistance from respiratory therapist or nursing staff. Sats now 90% with current Bipap settings at 30% FiO2.
--- NOTE | 2017-01-20 18:38 | NUR ---
Significant Event: Alert & oriented. SBP 150-160, HR 70-80's, afebrile, on 1L O2 most of day, sats 88-93% on room. Started Mucinex, able to cough up blood-tinged sputum, weak cough. Andrade and chest tube removed. [place] given x2. Started 24 hour urine collection at 1700. Follow up: Chest Xray in AM. Labs & bone scan ordered by .
--- NOTE | 2017-01-21 04:24 | NUR ---
Significant Event: Patient alert and oriented x3. SBP 180s-190s with first assessment. Dr. Rodríguez notified. 25mg Lopressor BID ordered and given with results. All other vital signs stable. On RA-2L O2. 1 tab [place] given x2 for complaints of pain to incision site. Chest tube site dressing remains C/D/I. Up with 1 assist and gaitbelt in room. 24hr urine collection continues. Dr. Talley saw this shift. No new orders given. Patient calm and cooperative with all cares. Follow up: X-Ray this morning. 24hr urine collection ends at 1700.
[2017-01-21 04:38] LABS: BASOPHIL # 0.1 K/uL (0.0-0.2); BASOPHIL % 0.4 %; EOSINOPHIL # 0.1 K/uL (0.0-0.5); EOSINOPHIL % 0.7 %; HEMATOCRIT 30.1 % (33.0-46.0); HEMOGLOBIN 9.2 g/dL (10.0-15.0); IMMATURE GRANULOCYTE # 0.1 K/uL (0.0-0.3); IMMATURE GRANULOCYTE % 0.7 %; LYMPHOCYTE # 1.5 K/uL (0.8-4.0); LYMPHOCYTE % 8.2 %; MCH 28.2 pg (27.0-34.0); MCHC 30.6 gm/dL (32.0-36.5); MCV 92.3 fl (83.0-98.0); MONOCYTE # 1.2 K/uL (0.0-1.0); MONOCYTE % 6.4 %; MPV 9.3 fl (9.4-12.4); NEUTROPHIL # (ANC) 15.2 K/uL (1.8-7.8); NEUTROPHIL % 83.6 %; NRBC % 0 /100WBC (0-0.00); PLATELET COUNT 460 K/uL (150-450); RBC 3.26 M/uL (3.50-5.50); RDW-CV 15.8 % (11.9-14.6)
[2017-01-21 04:39] LABS: WBC 18.2 K/uL (4.0-11.0)
[2017-01-21 04:48] LABS: INR - (THERAPEUTIC) 4.25 (0.92-1.07); PROTIME 45.3 SECONDS (9.8-11.4)
[2017-01-21] MEDS ORDERED: CLEOCIN150 MG PO (09:01)
[2017-01-21] MEDS ORDERED: COLACE100 MG PO (09:01)
[2017-01-21] MEDS ORDERED: HUMIBID LA (MU600 MG PO (09:04)
[2017-01-21] MEDS ORDERED: MAGOX 400400 MG PO (09:05)
[2017-01-21] MEDS ORDERED: LOPRESSOR25 MG PO (09:07)
[2017-01-21] MEDS ORDERED: FLORASTOR250 MG PO (09:09)
[2017-01-21] MEDS ORDERED: NORCO 5-325 TA1 EACH PO (09:12)
[2017-01-21] MEDS ORDERED: COUMADIN ** 9/62 MG PO (09:14)
[2017-01-24 10:05] LABS: TIME 24 h (()); VOLUME 520 mL (())
[2017-01-25 16:12] LABS: PROTEIN [CALC] 411 mg/24h (())
== END 2017-01-21 17:00 | disposition disaster alternative care site (69) | DRG 163 ==
LOC: GPCU 01-17 08:26
PROVIDERS: Internal Medicine Hematology & Oncology; ADMIT Thoracic Surgery (Cardiothoracic Vascular Surgery)
PROC: 0BTJ4ZZ Resection of Left Lower Lung Lobe, Percutaneous Endoscopic Approach (ICD-10-PCS; principal; 2017-01-17)
DX: J43.2 Centrilobular emphysema (principal); E43 Unspecified severe protein-calorie malnutrition; E11.9 Type 2 diabetes mellitus without complications; D64.9 Anemia, unspecified; J90 Pleural effusion, not elsewhere classified; I50.30 Unspecified diastolic (congestive) heart failure; I48.0 Paroxysmal atrial fibrillation; G31.9 Degenerative disease of nervous system, unspecified; Z68.20 Body mass index [BMI] 20.0-20.9, adult; Z79.01 Long term (current) use of anticoagulants; I25.10 Atherosclerotic heart disease of native coronary artery without angina pectoris; Z95.1 Presence of aortocoronary bypass graft; K21.9 Gastro-esophageal reflux disease without esophagitis; M19.90 Unspecified osteoarthritis, unspecified site; Z87.01 Personal history of pneumonia (recurrent); Z86.14 Personal history of Methicillin resistant Staphylococcus aureus infection; Z79.51 Long term (current) use of inhaled steroids
CPT/HCPCS: G0237; G0424; J0282; J0690; J1100; J1644; J1650; J1940; J2001; J2270; J2405; J2543; J3475; J7030; J7050; J7060